=== PATIENT | male | born 1975 | race Caucasian/White ===

== ENCOUNTER 2020-01-20 07:06 | Inpatient (IN) ==
[2020-01-20] MEDS ORDERED: SODIUM CHLORIDE 0.9% 1000ML 1,000 ML IV ONE (07:40)
[2020-01-20] MEDS ORDERED: PIPERACILLIN/TAZOBACTAM 4.5 GM/120 ML BAG IV ONE (07:43)
[2020-01-20] MEDS ORDERED: PIPERACILL/TAZOBAC CONSULT ACTIVE PRN ×2 (07:43→15:13)
--- NOTE | 2020-01-20 07:58 | XRay Report ---
XR chest 1V portable HISTORY: trouble swallowing, fevers COMPARISON: None. FINDINGS: No pneumothorax. No pleural effusions. The heart is normal in size. There is a left suprahi lar irregular airspace opacity measuring 7.3 x 4.6 cm. The right lung is clear. No evidence for pulmo nary edema. No rib fractures. IMPRESSION: A 7.3 x 4.6 cm left suprahilar irregular airspace opacity. This could represent a pneumonia. However, a pulmonary mass could also have a similar appearance. Contrast-enhanced chest CT recommended for fu rther evaluation. ACT 112: Negative or not required by law. Electronically signed by: Luis Carlos Cordoba M.D. 01/20/2020 7:57 AM
[2020-01-20] MEDS ORDERED: DIAZEPAM 5 MG/ML INJ 10ML VIAL IV STA (08:10)
[2020-01-20 08:16] LABS: Basophils # (auto) 0.02 K/uL (0-0.2); Basophils % (auto) 0.1 %; Eosinophils % (auto) 1.7 %; Hematocrit (blood only) 32.2 % (42-52); Hemoglobin 10.2 g/dL (14.0-18.0); Immature Granulocytes # (auto) 0.08 K/uL (0.00-0.02); Immature Granulocytes % (auto) 0.4 %; Lymphocytes # (auto) 2.31 K/uL (1.2-3.4); Lymphocytes % (auto) 12.8 %; Mean Corpuscular Hemoglobin 27.5 pg (25-34); Mean Corpuscular Hgb Conc 31.7 g/dL (32-36); Mean Corpuscular Volume 86.8 fL (80-100); Mean Platelet Volume 8.3 fL (7.4-10.4); Monocytes # (auto) 1.72 K/uL (0.11-0.59); Monocytes % (auto) 9.5 %; Neutrophils # (auto) 13.61 K/uL (1.4-6.5); Neutrophils % (auto) 75.5 %; Platelet Count 879 K/uL (130-400); RDW Coefficient of Variation 14.4 % (11.5-14.5); RDW Standard Deviation 45.9 fL (36.4-46.3); Red Blood Count 3.71 M/uL (4.7-6.1); White Blood Count 18.04 K/uL (4.8-10.8)
[2020-01-20 08:33] LABS: Albumin Level 2.6 gm/dl (3.4-5.0); Calcium 9.4 mg/dl (8.5-10.1); Creatinine Clr Calc Pharmacy 96.2 ml/min; Est GFR (Non-African American) 117.4; Potassium 3.9 mmol/L (3.5-5.1)
[2020-01-20 08:36] LABS: Albumin Globulin Ratio 0.5 (0.9-2); Bilirubin,Total 0.3 mg/dl (0.2-1); Globulin 5.3 gm/dl (2.5-4.0); Total Protein 7.9 gm/dl (6.4-8.2)
[2020-01-20] MEDS ORDERED: ACETAMINOPHEN 1,000 MG/100 ML VIAL IV STA (08:51)
[2020-01-20] MEDS ORDERED: IOVERSOL 100ml IV PRN (08:56)
[2020-01-20 09:09] LABS: Influenza A virus by PCR Neg for Influ A (Neg); Influenza B virus by PCR Neg for Influ B (Neg)
--- NOTE | 2020-01-20 09:31 | CT Scan Report ---
CT soft tissue neck w con CT DOSE: 323.57 mGy.cm CLINICAL HISTORY: trouble swallowing 1 month TECHNIQUE: Helical images were acquired during intravenous administration of 94 cc of Optiray 320. A dose lowering technique was utilized adhering to the principles of ALARA. COMPARISON STUDY: None. FINDINGS: The visualized portions of the lung apices are unremarkable. No thyroid masses are visualized. No salivary gland masses are visualized. There are left supraclavicular lymph nodes are the upper limits of normal in size measuring 9 mm in s hort axis. No necrotic lymph nodes are visualized. There are no fluid collections suspicious for abscess. There is no evidence of airway compromise. No mucosal space masses are visualized. There is an abnormal trabecular pattern of the bone. Clinical correlation in regards to metabolic bon e disease is recommended. Metastatic disease is within differential but is felt to be statistically l ess likely. IMPRESSION: 1. No pathologic neck masses identified 2. Left supraclavicular lymph nodes at the upper limits of normal in size. 3. Abnormal trabecular pattern of the bone. Clinical correlation in regards to metabolic bone disease is recommended ACT 112: Negative or not required by law. Electronically signed by: Neftaly Bond M.D. 01/20/2020 9:30 AM
--- NOTE | 2020-01-20 09:43 | CT Scan Report ---
CT OF THE CHEST WITH IV CONTRAST CLINICAL HISTORY: Evaluate mass on chest radiograph. COMPARISON STUDY: Chest radiograph performed earlier today. TECHNIQUE: Following IV administration of 94 mL of Optiray-320, helical axial images of the chest we re obtained. Sagittal and coronal reconstructions were viewed as well as maximal intensity projectio ns on an independent 3-D workstation. Automated exposure control was utilized for the study. A dose lowering technique was utilized adhering to the principles of ALARA. FINDINGS: Mild esophageal wall thickening is noted. No enlarged axillary, mediastinal or hilar lymph nodes are present. A few prominent upper abdominal lymph nodes are noted, including a left periaorti c lymph node that measures 1 cm in short axis diameter. Size the heart is normal. There is no pericar dial effusion. Mild emphysema is present. Note is made of a thick-walled fluid-filled mass-like abnor mality with cavitation within the left lung. This appears to extend across the major fissure and invo lves the apicoposterior segment of the left upper lobe and the superior segment the left lower lobe. This measures 6.1 x 3.7 cm. The inferior component is cavitary and extends to a 1.6 cm irregular nodu le within the left lower lobe on image 165. Additional groundglass opacity within the left lower lobe and lingula is noted. No underlying bony destruction is present. Central airways are patent. Note is made of diffuse increased sclerosis and heterogeneity of visualized skeletal structures. Visual port ions of the liver are unremarkable. Visualized portions of the adrenal glands are unremarkable. IMPRESSION: 1. 6.1 x 3.7 cm thick-walled fluid-filled mass-like abnormality with cavitation in the left lung whic h extends across the fissure and involves the apicoposterior segment of the left upper lobe and the s uperior segment of the left lower lobe. Adjacent irregular 1.6 cm nodule. These findings may reflect a neoplastic process with necrotic neoplasm. However, an infectious process with lung abscess or less likely empyema could appear similar. Although unlikely, tuberculosis is within the differential. Pul monary consultation is recommended. Discussed with Dr. De Leon at time of dictation. 2. Mild emphysema. 3. Mild esophageal wall thickening. 4. Prominent upper abdominal lymph nodes. 5. Diffuse increased sclerosis and heterogeneity of visualized skeletal structures. This raises the p ossibility of metabolic bone disease. Metastatic disease is within the differential although consider ed less likely. ACT 112: Negative or not required by law. Electronically signed by: Tomás Souza M.D. 01/20/2020 9:41 AM
--- NOTE | 2020-01-20 10:31 | Emergency Department Note ---
Entered by Laney Farris acting as a scribe for Angeles Maynard MD History of Present Illness General Chief complaint: Food Bolus Stated complaint: FEELS LIKE SOMETHING STUCK IN THROAT Source: patient History of Present Illness Onset (ago): month(s) 1 Location: head and mouth (food bolus) Radiation: neck Severity: similar to prior episodes Pain Consistency: + other (persistent) Maximum Pain Intensity: 8 Quality: + other (food bolus) Exacerbated By: + eating Associated symptoms: + chest pain, + fever/chills and + nausea/vomiting; no headaches and no syncope Treatments prior to arrival: none The patient is a 45 year old male presenting to the Emergency Department complaining of a worsening food bolus starting 1 month ago. The patient reports that he feels like something is stuck in his throat. He states that he hasnt been able to eat solid foods for the past month and has lost a significant amount of weight. He explains that he is often nauseous and has been vomiting 1 to 2 times per day. He notes that when he tries to eat his throat hurts. He adds that he has been experiencing cyclic fevers for the past month and that his temperature PHYSICIAN'S ASSISTANT was 100.2F. The patient reports that he sometimes experienced chest pain that radiates up to his neck. He states that he takes no medications regularly and took no medications for his symptoms PHYSICIAN'S ASSISTANT. He explains that he regularly smokes pack of cigarettes per day. He notes that he has no pertinent past medical history. He denies headaches, syncope and drinking alcohol. Home Medications Home Medications Medication Instructions Recorded Confirmed Type diphenhydramine-acetaminophen 2 tab PO HS PRN 01/20/20 01/20/20 History [Tylenol PM Extra Strength] methadone 116 mg PO QAM 01/20/20 01/20/20 History Allergies Allergy/AdvReac Type Severity Reaction Status Date / Time No Known Allergies Allergy Verified 01/20/20 07:33 Past Med/Surg History Medical History Heroin abuse No pertinent past medical history Surgical History No pertinent past surgical history Family History Other Cancer Social History Preferred Language: Togolese Communication Ability: Effective Bereavement Program Coordinator Required: No Beliefs That Will Affect Care: None Current Living Situation: Family and Other Current Living Situation Comment: Lives w/ mother. Feels Safe at Home: Yes Smoking Status: Current every day smoker Tobacco Type: cigarettes ; Cigarettes Per Day: 1 pack/day ; Hx Alcohol Use: No Hx Substance Use: Yes (Not present w/ substance abuse.) substance use type: un known Review of Systems See HPI for pertinent positives & negatives. and A total of 10 systems reviewed and were otherwise negative Physical Exam Vital Signs Vital Signs - 24 hr 01/20/20 07:10 01/20/20 08:10 01/20/20 08:30 Temperature 37.9 C H Temperature Source Oral Pulse Rate 91 H 82 Pulse Rate [Apical] 84 Pulse Rate from SpO2 Sensor 82 Pulse Rhythm [Apical] Regular Respiratory Rate 18 21 20 Respiratory Effort / Characteristics Non-Labored Respiratory Depth Normal Normal Blood Pressure 116/70 94/60 L Blood Pressure [Left Arm] 103/75 Blood Pressure Mean 85 65 Blood Pressure Mean [Left Arm] 84 Blood Pressure Position [Left Arm] Sitting Pulse Oximetry 97 92 93 Oxygen Delivery Method Room Air Room Air Sepsis Recent Fever Within 48 Hours Yes Sepsis New/Unexplained Change in Mental Status No Sepsis Action Taken by Nursing No Action Required 01/20/20 09:07 01/20/20 09:30 01/20/20 10:00 Temperature Temperature Source Pulse Rate 81 68 66 Pulse Rate [Apical] Pulse Rate from SpO2 Sensor 82 68 65 Pulse Rhythm [Apical] Respiratory Rate 19 19 21 Respiratory Effort / Characteristics Respiratory Depth Blood Pressure 101/65 91/59 L 88/54 L Blood Pressure [Left Arm] Blood Pressure Mean 70 62 56 Blood Pressure Mean [Left Arm] Blood Pressure Position [Left Arm] Pulse Oximetry 94 95 95 Oxygen Delivery Method Sepsis Recent Fever Within 48 Hours Sepsis New/Unexplained Change in Mental Status Sepsis Action Taken by Nursing 01/20/20 10:30 Temperature Temperature Source Pulse Rate 63 Pulse Rate [Apical] Pulse Rate from SpO2 Sensor 63 Pulse Rhythm [Apical] Respiratory Rate 16 Respiratory Effort / Characteristics Respiratory Depth Blood Pressure 81/51 L Blood Pressure [Left Arm] Blood Pressure Mean 54 Blood Pressure Mean [Left Arm] Blood Pressure Position [Left Arm] Pulse Oximetry 95 Oxygen Delivery Method Sepsis Recent Fever Within 48 Hours Sepsis New/Unexplained Change in Mental Status Sepsis Action Taken by Nursing Vital signs reviewed. General: Cachectic-appearing 45 year old male, in no significant distress. HEENT: Dry mucous membranes. No scleral icterus, PERRLA, neck supple. Atraumatic. Cardiovascular: Regular rate and rhythm, no extra sounds. Pulmonary: Coarse right sided breath sounds. Normal work of breathing. Abdomen: Abdomen is thin and non-tender. Soft, nondistended, positive bowel sounds. Musculoskeletal: Atraumatic, no peripheral edema. Neurologic: Patient awake alert and oriented x 3 Skin: Warm, dry, no rash Course Course 0720: The patient was evaluated in room B10, and a complete history and physical examination were performed. 0931: I reevaluated the patient at this time. 1031: I discussed the patient's case with Dr. Rosalia KELLY hospitalist. She will evaluate the patient for further management. 1036: EMR reviewed. Patient had negative TB test done at [facility] this past week. Administered Medications Potassium Chloride/Sodium Chloride (Normal Saline W/20 Meq Kcl) 20 meq in 1,000 mls @ 80 mls/hr IV .[id number] [facility] Stop: 02/19/20 15:29 Last Admin: 01/21/20 04:10 Dose: 80 mls/hr Documented by: [id number] Infusion: 01/21/20 04:10 Dose: 80 mls/hr Documented by: [id number] Admin: 01/20/20 16:23 Dose: 80 mls/hr Documented by: [id number] Piperacillin Sod/Tazobactam (Sod 3.375 gm/ Dextrose) 115 mls @ 28.75 mls/hr IV Q8H [facility]; Protocol Stop: 01/27/20 15:59 Last Admin: 01/21/20 16:21 Dose: 28.8 mls/hr Documented by: [id number] Infusion: 01/21/20 13:07 Dose: 0 mls/hr Documented by: [id number] Admin: 01/21/20 07:39 Dose: 28.8 mls/hr Documented by: [id number] Infusion: 01/21/20 03:59 Dose: 0 mls/hr Documented by: [id number] Admin: 01/20/20 23:59 Dose: 28.8 mls/hr Documented by: [id number] Infusion: 01/20/20 20:00 Dose: 0 mls/hr Documented by: [id number] Admin: 01/20/20 16:00 Dose: 28.8 mls/hr Documented by: [id number] Lorazepam (Ativan) 1 mg in 2 mls @ 2 mls/min IV QID [facility] Stop: 02/19/20 15:59 Last Admin: 01/21/20 14:13 Dose: 2 mls/min Documented by: [id number] Admin: 01/21/20 07:40 Dose: 2 mls/min Documented by: [id number] Admin: 01/20/20 20:02 Dose: 2 mls/min Documented by: [id number] Admin: 01/20/20 16:00 Dose: 2 mls/min Documented by: [id number] Ioversol (Optiray 320 100ml) 94 ml IV ONCE PRN PRN Reason: Interaction Checking Stop: 01/25/20 12:33 Last Admin: 01/21/20 12:34 Dose: 94 ml Documented by: [id number] Methadone HCl (Methadone Hcl) 116 mg PO QAM [facility] Stop: 02/04/20 08:59 Last Admin: 01/21/20 09:40 Dose: 116 mg Documented by: [id number] Non-Formulary Medication (Patient's Own Controlled Med) 1 ea PO QAM [facility] Stop: 02/04/20 08:59 Last Admin: 01/21/20 09:40 Dose: 116 mg Documented by: [id number] Pantoprazole Sodium (Protonix) 40 mg PO BID [facility] Stop: 02/19/20 20:59 Last Admin: 01/21/20 09:39 Dose: 40 mg Documented by: [id number] Admin: 01/20/20 23:59 Dose: 40 mg Documented by: [id number] Discontinued Medications Chlorpromazine HCl (Thorazine) 25 mg PO NOW ONE Stop: 01/20/20 13:42 Last Admin: 01/20/20 14:02 Dose: 25 mg Documented by: [id number] Chlorpromazine HCl (Thorazine) Confirm Administered Dose 25 mg .ROUTE .STK-MED ONE Stop: 01/20/20 14:01 Last Admin: 01/20/20 14:02 Dose: Not Given Documented by: [id number] Chlorpromazine HCl (Thorazine) 25 mg PO QID [facility] Stop: 02/19/20 16:59 Last Admin: 01/21/20 14:11 Dose: 25 mg Documented by: [id number] Admin: 01/21/20 09:39 Dose: 25 mg Documented by: [id number] Admin: 01/20/20 20:01 Dose: 25 mg Documented by: [id number] Admin: 01/20/20 17:04 Dose: 25 mg Documented by: [id number] Diazepam (Valium) 10 mg IV NOW STA Stop: 01/20/20 08:11 Last Admin: 01/20/20 08:19 Dose: 10 mg Documented by: [id number] Sodium Chloride (Nss 1000ml) 1,000 mls @ 999 mls/hr IV .Q1H1M ONE Stop: 01/20/20 08:40 Last Infusion: 01/20/20 09:15 Dose: 0 mls/hr Documented by: [id number] Admin: 01/20/20 08:14 Dose: 999 mls/hr Documented by: [id number] Piperacillin Sod/Tazobactam Sod (Zosyn) 4.5 gm in 120 mls @ 240 mls/hr IV NOW ONE Stop: 01/20/20 08:12 Last Infusion: 01/20/20 08:44 Dose: 0 mls/hr Documented by: [id number] Admin: 01/20/20 08:14 Dose: 240 mls/hr Documented by: [id number] Acetaminophen (Ofirmev) 1,000 mg in 100 mls @ 400 mls/hr IV NOW STA Stop: 01/20/20 09:05 Last Infusion: 01/20/20 09:22 Dose: 0 mls/hr Documented by: [id number] Admin: 01/20/20 09:07 Dose: 400 mls/hr Documented by: [id number] Tuberculin PPD 5 tu/ Syringe 0.1 mls @ 0.033 mls/min ID ONE ONE Stop: 01/20/20 15:33 Last Admin: 01/20/20 16:23 Dose: 0.033 mls/min Documented by: [id number] Ioversol (Optiray 320 100ml) 94 ml IV ONCE PRN PRN Reason: Interaction Checking Stop: 01/24/20 08:55 Last Admin: 01/20/20 08:56 Dose: 94 ml Documented by: [id number] Medical Decision Making Differential Diagnosis Differential Diagnosis includes but is not limited to cancer, HIV, TB, dehydration, stroke, anemia, hypoglycemia, hyponatremia, hypernatremia, urinary tract infection, pneumonia, bronchitis, sepsis, gastroenteritis, additional abdominal pathology, metabolic abnormalities and infections. Medical Records Attestation: I reviewed the patient's medical records. Home Medications Current Medication List: was personally reviewed by me Laboratory Data Attestation: I reviewed the patient's lab results. Result diagrams: 01/21/20 06:08 01/21/20 06:08 Lab Results 01/20/20 01/20/20 01/20/20 Range/Units 08:04 08:04 08:04 WBC 18.04 H (4.8-10.8) K/uL RBC 3.71 L (4.7-6.1) M/uL Hgb 10.2 L (14.0-18.0) g/dL Hct 32.2 L (42-52) % MCV 86.8 (80-100) fL MCH 27.5 (25-34) pg MCHC 31.7 L (32-36) g/dL RDW Std Deviation 45.9 (36.4-46.3) fL RDW Coeff of Renzo 14.4 (11.5-14.5) % Plt Count 879 H (130-400) K/uL MPV 8.3 (7.4-10.4) fL Immature Gran % (Auto) 0.4 % Neut % (Auto) 75.5 % Lymph % (Auto) 12.8 % [place] % (Auto) 9.5 % Eos % (Auto) 1.7 % Baso % (Auto) 0.1 % Immature Gran # (Auto) 0.08 H (0.00-0.02) K/uL Neut # (Auto) 13.61 H (1.4-6.5) K/uL Lymph # (Auto) 2.31 (1.2-3.4) K/uL [place] # (Auto) 1.72 H (0.11-0.59) K/uL Eos # (Auto) 0.30 (0-0.5) K/uL Baso # (Auto) 0.02 (0-0.2) K/uL PT (9.0-12.0) Seconds INR (0.9-1.1) APTT (21.0-31.0) Seconds PTT Ratio Sodium 134 L (136-145) mmol/L Potassium 3.9 (3.5-5.1) mmol/L Chloride 98 (98-107) mmol/L Carbon Dioxide 28 (21-32) mmol/L Anion Gap 7.0 (3-11) BUN 8 (7-18) mg/dl Creatinine 0.63 (0.6-1.4) mg/dl Est Cr Clr Drug Dosing 96.2 ml/min Est GFR ( Amer) 136.0 Est GFR (Non-Af Amer) 117.4 BUN/Creatinine Ratio 13.0 (10-20) Glucose 93 (70-99) mg/dl Lactate 1.1 (0.4-2.0) mmol/L Calcium 9.4 (8.5-10.1) mg/dl Total Bilirubin 0.3 (0.2-1) mg/dl AST 20 (15-37) U/L ALT 33 (12-78) U/L Alkaline Phosphatase 116 (45-117) U/L Total Protein 7.9 (6.4-8.2) gm/dl Albumin 2.6 L (3.4-5.0) gm/dl Globulin 5.3 H (2.5-4.0) gm/dl Albumin/Globulin Ratio 0.5 L (0.9-2) Influenza Type A (PCR) (Neg) Influenza Type B (PCR) (Neg) 01/20/20 01/20/20 Range/Units 08:04 08:11 WBC (4.8-10.8) K/uL RBC (4.7-6.1) M/uL Hgb (14.0-18.0) g/dL Hct (42-52) % MCV (80-100) fL MCH (25-34) pg MCHC (32-36) g/dL RDW Std Deviation (36.4-46.3) fL RDW Coeff of Renzo (11.5-14.5) % Plt Count (130-400) K/uL MPV (7.4-10.4) fL Immature Gran % (Auto) % Neut % (Auto) % Lymph % (Auto) % [place] % (Auto) % Eos % (Auto) % Baso % (Auto) % Immature Gran # (Auto) (0.00-0.02) K/uL Neut # (Auto) (1.4-6.5) K/uL Lymph # (Auto) (1.2-3.4) K/uL [place] # (Auto) (0.11-0.59) K/uL Eos # (Auto) (0-0.5) K/uL Baso # (Auto) (0-0.2) K/uL PT 13.0 H (9.0-12.0) Seconds INR 1.3 H (0.9-1.1) APTT 34.8 H (21.0-31.0) Seconds PTT Ratio 1.3 Sodium (136-145) mmol/L Potassium (3.5-5.1) mmol/L Chloride (98-107) mmol/L Carbon Dioxide (21-32) mmol/L Anion Gap (3-11) BUN (7-18) mg/dl Creatinine (0.6-1.4) mg/dl Est Cr Clr Drug Dosing ml/min Est GFR ( Amer) Est GFR (Non-Af Amer) BUN/Creatinine Ratio (10-20) Glucose (70-99) mg/dl Lactate (0.4-2.0) mmol/L Calcium (8.5-10.1) mg/dl Total Bilirubin (0.2-1) mg/dl AST (15-37) U/L ALT (12-78) U/L Alkaline Phosphatase (45-117) U/L Total Protein (6.4-8.2) gm/dl Albumin (3.4-5.0) gm/dl Globulin (2.5-4.0) gm/dl Albumin/Globulin Ratio (0.9-2) Influenza Type A (PCR) Neg for Influ A (Neg) Influenza Type B (PCR) Neg for Influ B (Neg) Imaging Data Radiologist's Impression: Radiology results as stated below per my review and the radiologist's interpretation: CT soft tissue neck w con CT DOSE: 323.57 mGy.cm CLINICAL HISTORY: trouble swallowing 1 month TECHNIQUE: Helical images were acquired during intravenous administration of 94 cc of Optiray 320. A dose lowering technique was utilized adhering to the principles of ALARA. COMPARISON STUDY: None. FINDINGS: The visualized portions of the lung apices are unremarkable. No thyroid masses are visualized. No salivary gland masses are visualized. There are left supraclavicular lymph nodes are the upper limits of normal in size measuring 9 mm in short axis. No necrotic lymph nodes are visualized. There are no fluid collections suspicious for abscess. There is no evidence of airway compromise. No mucosal space masses are visualized. There is an abnormal trabecular pattern of the bone. Clinical correlation in regards to metabolic bone disease is recommended. Metastatic disease is within differential but is felt to be statistically less likely. IMPRESSION: 1. No pathologic neck masses identified 2. Left supraclavicular lymph nodes at the upper limits of normal in size. 3. Abnormal trabecular pattern of the bone. Clinical correlation in regards to metabolic bone disease is recommended ACT 112: Negative or not required by law. Electronically signed by: Neftaly Bond M.D. 01/20/2020 9:[address] OF THE CHEST WITH IV CONTRAST CLINICAL HISTORY: Evaluate mass on chest radiograph. COMPARISON STUDY: Chest radiograph performed earlier today. TECHNIQUE: Following IV administration of 94 mL of Optiray-320, helical axial images of the chest were obtained. Sagittal and coronal reconstructions were viewed as well as maximal intensity projections on an independent 3-D work station. Automated exposure control was utilized for the study. A dose lowering technique was utilized adhering to the principles of ALARA. FINDINGS: Mild esophageal wall thickening is noted. No enlarged axillary, mediastinal or hilar lymph nodes are present. A few prominent upper abdominal lymph nodes are noted, including a left periaortic lymph node that measures 1 cm in short axis diameter. Size the heart is normal. There is no pericardial effusion. Mild emphysema is present. Note is made of a thick-walled fluid-filled mass-like abnormality with cavitation within the left lung. This appears to extend across the major fissure and involves the apicoposterior segment of the left upper lobe and the superior segment the left lower lobe. This measures 6.1 x 3.7 cm. The inferior component is cavitary and extends to a 1.6 cm irregular nodule within the left lower lobe on image 165. Additional groundglass opacity within the left lower lobe and lingula is noted. No underlying bony destruction is present. Central airways are patent. Note is made of diffuse increased sclerosis and heterogeneity of visualized skeletal structures. Visual portions of the liver are unremarkable. Visualized portions of the adrenal glands are unremarkable. IMPRESSION: 1. 6.1 x 3.7 cm thick-walled fluid-filled mass-like abnormality with cavitation in the left lung which extends across the fissure and involves the apicoposterior segment of the left upper lobe and the superior segment of the left lower lobe. Adjacent irregular 1.6 cm nodule. These findings may reflect a neoplastic process with necrotic neoplasm. However, an infectious process with lung abscess or less likely empyema could appear similar. Although unlikely, tuberculosis is within the differential. Pulmonary consultation is recommended. Discussed with Dr. De Leon at time of dictation. 2. Mild emphysema. 3. Mild esophageal wall thickening. 4. Prominent upper abdominal lymph nodes. 5. Diffuse increased sclerosis and heterogeneity of visualized skeletal structures. This raises the possibility of metabolic bone disease. Metastatic disease is within the differential although considered less likely. ACT 112: Negative or not required by law. Electronically signed by: Tomás Souza M.D. 01/20/2020 9:41 AM XR chest 1V portable HISTORY: trouble swallowing, fevers COMPARISON: None. FINDINGS: No pneumothorax. No pleural effusions. The heart is normal in size. There is a left suprahilar irregular airspace opacity measuring 7.3 x 4.6 cm. The right lung is clear. No evidence for pulmonary edema. No rib fractures. IMPRESSION: A 7.3 x 4.6 cm left suprahilar irregular airspace opacity. This could represent a pneumonia. However, a pulmonary mass could also have a similar appearance. Contrast-enhanced chest CT recommended for further evaluation. ACT 112: Negative or not required by law. Electronically signed by: Luis Carlos Cordoba M.D. 01/20/2020 7:57 AM ECG Data Attestation: I personally reviewed and interpreted this ECG as follows: Indication: + other (food bolus) Rate (beats per minute): 76 Rhythm: + sinus rhythm ECG Intervals/blocks: + Normal QT ECG [place]: + Normal ECG ST segments: no ST depression and no ST elevation ECG Findings: + PACs and + LVH Blood Pressure Blood Pressure Findings: Low blood pressure Blood Pressure Disposition: further management by hospitalist KASSIDY Narrative Cardiac Monitoring: An order was placed for continuous cardiac monitoring. The monitor shows a rate of 63 with sinus rhythm. This patient was evaluated and appeared to be in no significant distress. IV access was obtained and laboratory work was drawn. The patient was placed on the cardiac exercise specialist. IV hydration was initiated. Chest x-ray was performed and reveals a 7.3 x 4.6 cm left-sided suprahilar mass. Follow-up CT imaging was performed due to the questionable etiology of the consolidation. Given the patient's recent weight loss and difficulty swallowing, there is obvious concern for malignancy. CT imaging finds a 6.1 x 3.7 cm thick-walled fluid-filled mass with cavitation of the left lung. The patient states he follows with the methadone clinic and had a negative TB test within the last 2 weeks. Patient did receive IV Zosyn given the elevated WBC, blood cultures are pending. Case was discussed with the hospitalist service who will evaluate the patient for further management. Patient is aware of the plan and agrees. Impression & Plan Pulmonary mass, Pneumonia, Fever, Weight loss, Dysphagia Discharge Plan Visit Data *Final* Discharge Date/Time: 01/20/20 14:51 Chief Complaint: Food Bolus Stated Complaint: FEELS LIKE SOMETHING STUCK IN THROAT ED Provider: Angeles Maynard ED Midlevel Provider: Jose Raul De Leon Discharge Problem: Pulmonary mass, Pneumonia, Fever, Weight loss, Dysphagia Patient Disposition: Admitted As Inpatient Discharge Instructions Interventions: ED Discharge Assessment Last Done: 01/20/20 14:51 Discharge Problem: Pneumonia Qualifiers: Pneumonia type: due to unspecified organism Laterality: left Lung location: upper lobe of lung Qualified Code(s): J18.9 - Pneumonia, unspecified organism Fever Qualifiers: Fever type: unspecified Qualified Code(s): R50.9 - Fever, unspecified Dysphagia Qualifiers: Dysphagia type: unspecified Qualified Code(s): R13.10 - Dysphagia, unspecified The scribe's documentation has been prepared under my direction and personally reviewed by me in its entirety. I confirm that the note above accurately reflects all work, treatment, procedures, and medical decision making performed by me.
--- NOTE | 2020-01-20 11:25 | History & Physical Report ---
Date of Service January 20, 2020 Assessment & Plan (1) Pulmonary mass: Admit to [facility] on telemetry. Vital signs every 4 hours. CBC and CMP daily and monitor electrolytes and replenish as needed. Procalcitonin pending. Patient was started on Zosyn in the ER continue Zosyn for possible pneumonia. Patient is placed on airborne isolation until we rule out TB. QuantiFERON test pending. Will do sputum cultures x3. Blood cultures pending. Consult pulmonary for biopsy of the lung mass. N.p.o. after midnight for possible procedure and lung biopsy. DVT prophylaxis SCDs and teds. Patient is a full code. Present on Admission?: Yes (2) Pneumonia: As discussed above. Follow-up with blood cultures. Discontinue Zosyn if pneumonia is less likely based on procalcitonin result and blood cultures. HIV test is pending to r/o possible HIV infection since pt has significant risk factors. Present on Admission?: Yes (3) Weight loss: As discussed above. Started antinausea medication Phenergan 25 mg Q6h prn. Patient has low albumin 2.6. With consult nutrition nutritional assessment. Present on Admission?: Yes (4) Dysphagia: Not clear origin of dysphagia. Could be related to hiccups and irritation of the phrenic nerve by the mass in patient lungs. Will consult GI and pulmonary. Pt possibly needs EGD since there is mild thickening of the esophageal wall seen on the CT chest. Started Thorazine 25 mg PO QID for hiccups. Present on Admission?: Yes (5) Intractable hiccups: As discussed above, started on Thorazine. Observe closely. Present on Admission?: Yes History of Present Illness Chief Complaint: Nausea, vomiting, dysphagia, lung mass Primary Care Provider: JOANIE Nuñez The patient is a 45 years old male with past medical history of snoring heroine for 6 months and then joining [facility] for the past 6 months. Patient reports not ever using IV heroin. Patient is bisexual. He reports smoking 10 cigarettes/day for past 20 years. Patient states that he had PPD test done in the methadone clinic as well as syphilis test which were both negative.HIV test was not done.Patient presented now to the emergency room with a complaint of nausea and vomiting and not being able to swallow solid food for 1 month. Patient is now has low grade fever with temperature of 37.9(100.22F) Patient reports losing 10 pounds.Patient is otherwise mobile and lives with his mother.Patient denies recent travel. He denies chills, chest pain, shortness of breath, abdominal pain, frequency, urgency.Labs are reviewed which shows:WBC is 18.04, RBCs 3.71, hemoglobin 10.2, hematocrit 32.2, platelets 879,Neutrophils 13.61,Sodium 134, potassium 3.9, chloride 98,Carbon dioxide 28, anion gap 7, BUN 8, creatinine 0.63,GFR 117.4, lactate 1.1,calcium 9.4, total bili 0.3,AST 20, ALT 33, alkaline phosphatase 116, total protein 7.9, albumin 2.6, globulin 5.3,Influenza A and B- both negative.Chest x-ray of the necksoft shows no pathological neck masses identified, left supraclavicular lymph node- 9 mm at the upper limits of normal size. Normal trabecular pattern of the bone. Clinical correlation in regards of metabolic disease is recommended. Chest x- rays CT scan of thorax shows 1.6 x 3.7 cm thick-walled fluid-filled mass like abnormality with cavitation in the left lungs which extends across the fissure and involves the apical posterior segment of the left upper lobe and the superior segment of the left lower lobe. Adjacent irregular 1.6 cm nodule. These findings may reflect a neoplastic process with necrotic neoplasm. However an infectious process with lung abscess or less likely empyema could appear similar. Although unlikely tuberculosis is within the differential.There was also seen mild emphysema. Mild esophageal wall thickening. Prominent upper abdominal lymph nodes. Diffuse increase sclerosis and heterogeneity of visualized skeletal structure. This raises the possibility of metabolic bone disease. Metastatic disease is within the differential although considered less likely.Due to all of these concerns and patient not being able to swallow for 1 month and having nausea and vomiting,weight loss, lung mass,and intractable hiccups will admit pt to [facility] on tele for further evaluation and treatment. Allergies Allergy/AdvReac Type Severity Reaction Status Date / Time No Known Allergies Allergy Verified 01/20/20 07:33 Home Medications Home Medications Medication Instructions Recorded Confirmed Type diphenhydramine-acetaminophen 2 tab PO HS PRN 01/20/20 01/20/20 History [Tylenol PM Extra Strength] methadone 119 mg PO QAM 01/20/20 01/20/20 History Past Med/Surg History Medical History No pertinent past medical history Surgical History No pertinent past surgical history Family History Other Cancer Social History Feels Safe at Home: Yes Smoking Status: Current every day smoker Review of Systems Review of Systems: All systems reviewed & are unremarkable except as noted in HPI & below Physical Exam Constitutional: WD/WN, vitals as above well developed, + ill appearing, + cachectic and cooperative Eyes: PERRL, conjunctivae normal, anicteric sclerae ENMT: external ear and nose normal, oropharynx normal Neck: trachea midline, no thyromegaly Respiratory: normal respiratory effort, normal percussion and + tactile fremitus Auscultation: + wheezes Cardiovascular: RRR, no murmur, no edema Gastrointestinal (Abdomen): normal bowel sounds, soft, nontender, no hepatosplenomegaly Musculoskeletal: no cyanosis or clubbing, extremities motor strength 5/5 Skin: no rashes, warm and dry Neurologic: patellar DTR's 2+ bilat, sensation intact Lymphatic: no cervical or axillary lymphadenopathy Results & Data Vital Signs (Past 12 Hours) Vital Signs Temp Pulse Pulse Resp BP BP Pulse Ox 01/20/20 10:30 63 16 81/51 L 95 01/20/20 10:00 66 21 88/54 L 95 01/20/20 09:30 68 19 91/59 L 95 01/20/20 09:07 81 19 101/65 94 01/20/20 08:30 82 20 94/60 L 93 01/20/20 08:10 84 21 103/75 92 01/20/20 07:10 37.9 C H 91 H 18 116/70 97 Code Status & VTE Plan Code Status full code VTE Prophylaxis Plan VTE Prophylaxis will be ordered: Yes PG Care Time/CCT Total # of Minutes Spent Total Time Spent with Patient: Total time spent is greater than 50% in coordination of care (as documented) at patient's floor/unit and/or counseling patient: Coding Level of Care Code 28946 Initial Inpt Care Lvl 3 Diagnoses Pulmonary mass R91.8 Pneumonia J18.9 Laterality: left Lung location: upper lobe of lung Pneumonia type: due to unspecified organism Weight loss R63.4 Dysphagia R13.10 Dysphagia type: unspecified Intractable hiccups R06.6 (1) Pneumonia Laterality: left Lung location: upper lobe of lung Pneumonia type: due to unspecified organism Qualified Code(s): J18.9 - Pneumonia, unspecified organism (2) Dysphagia Dysphagia type: unspecified Qualified Code(s): R13.10 - Dysphagia, unspecified
[2020-01-20] MEDS ORDERED: CHLORPROMAZINE HCL 25 MG TABLET PO ONE (13:41)
[2020-01-20] MEDS ORDERED: CHLORPROMAZINE HCL 25 MG TABLET ONE (14:00)
[2020-01-20] MEDS ORDERED: PROMETHAZINE HCL 25 MG in SODIUM CHLORIDE 0.9% 50 ML IV PRN (15:13)
[2020-01-20] MEDS ORDERED: ALUMINUM/MAGNESIUM SUSP 30 ML UDC PO PRN (15:13)
[2020-01-20] MEDS ORDERED: POLYETHYLENE (MIRALAX) 17 GM PACK PO PRN (15:13)
[2020-01-20] MEDS ORDERED: MAGNESIUM HYDROXIDE SUSP 30 ML UDC PO PRN (15:13)
[2020-01-20] MEDS ORDERED: NON-FORMULARY MEDICATION (Diphenhydramine-Acetaminophen [Tylenol Pm Extra Strength] 2 TAB) PO PRN (15:13)
[2020-01-20] MEDS ORDERED: TUBERCULIN SKIN TEST 5 TU in SYRINGE 0 ML ID ONE (15:30)
[2020-01-20 15:47] LABS: INR 1.3 (0.9-1.1); Partial Thromboplastin Ratio 1.3; Partial Thromboplastin Time 34.8 Seconds (21.0-31.0)
[2020-01-20] MEDS: PIPERACILLIN/TAZOBACTAM 3.375 GM in DEXTROSE 5% 100 ML IV SCH ×2 (16:00→23:59)
[2020-01-20] MEDS: LORazepam 1 MG/2 ML VIAL IV SCH ×2 (16:00→20:02)
[2020-01-20 16:03] LABS: Reticulocyte % 1.1 % (0.5-2.0); Reticulocytes # 0.04 10^6/uL (0.02-0.10)
--- NOTE | 2020-01-20 16:04 | Gastrointestinal Consultation ---
Date of Consultation January 20, 2020 Assessment & Plan (1) Dysphagia: (2) Weight loss: (3) Fever: (4) Intractable hiccups: (5) Pulmonary mass: Pt is a 45 y/o male w symptoms of difficulty and painful swallowing, poor appetite, weight loss for over a month. Hiccups in last 4 days. On eval chest imaging showed 6 x3 cm fluid filled L lung mass w cavitation - Keep NPO. Will arrange for UGI swallow study (esophagram) - Protonix 40mg daily - Thorazine prn hiccups - F/U TB quant gold and HIV tests - Pulmonary consulted - Deferring endoscopic evaluation at this time until workup for pulmonary mass is completed Supervising Physician Co-Signing Physician Notes I performed a history and physical examination of the patient today, including specifically on physical exam - soft abdomen. I have discussed the patient's management with the advanced practitioner. Please refer to the nurse practitioner's note for the documented findings and plan of care. 45 years old male patient with dysphagia/odynophagia, found with large cavitary lung lesion on CT scan. Also has distal esophageal wall thickening. Currently being evaluated for TB and HIV. Recommend: Defer EGD till pulmonary work up is completed and TB is ruled out. Meanwhile, obtain esophagogram. PO PPI. If HIV test is positive then treat empirically with Fluconazole. History of Present Illness Reason for Consultation: Dysphagia Requesting Physician: Dr. [place] Attending Physician: Dr. Dwayne Tejeda History of Present Illness Pt is a 45 y/o male, who presented to ED w c/o nausea, vomiting, and difficulty swallowing foods x over a month. He has associated weight loss of 15 lbs in last 1 month. He has hiccups for last 4 days. Whenever he tried swallowing foods or liquids, he will have pain and start coughing food up. He is also reporting low grade fever at home. + cough, night sweats but denies any hemoptysis. Labs notable for elevated WBC 18K, H/H 10/32, Plt 879. PT/INR 13/1.3. Electrolytes and renal/liver functions normal. albumin low 2.6. Influenza PCR negative. Chest imaging via CXR, Chest CT showed a 6.1 x 3.7 cm thick-walled fluid-filled mass-like abnormality with cavitation in the left lung which extends across the fissure and involves the apicoposterior segment of the left upper lobe and the superior segment of the left lower lobe. Adjacent irregular 1.6 cm nodule. Differentials include neoplastic process w necrotic neoplasm, lung abscess, less likely empyema, TB. Pulmonary consulted. He also has mild esophageal wall thickening w prominent upper abd lymph nodes, diffuse sclerosis and heterogeneity of skeletal structures ? metabolic bone disease. He has Hx of heroin use currently in [facility]one clinic. Smokes 10 cigarettes/day. Denies ETOH abuse. He is bisexual. Denies tattoos or body piercing. Denies known exposure to TB. HIV and TB eval started. Allergies Allergy/AdvReac Type Severity Reaction Status Date / Time No Known Allergies Allergy Verified 01/20/20 07:33 Home Medications Home Medications Medication Instructions Recorded Confirmed Type diphenhydramine-acetaminophen 2 tab PO HS PRN 01/20/20 01/20/20 History [Tylenol PM Extra Strength] methadone 116 mg PO QAM 01/20/20 01/20/20 History Patient History Medical History Heroin abuse No pertinent past medical history Surgical History No pertinent past surgical history Family History Other Cancer Social History Preferred Language: Portuguese Communication Ability: Effective Appointment Specialist Required: No Beliefs That Will Affect Care: None Current Living Situation: Family and Other Current Living Situation Comment: Lives w/ mother. Feels Safe at Home: Yes Smoking Status: Current every day smoker Tobacco Type: cigarettes ; Cigarettes Per Day: 1 pack/day ; Hx Alcohol Use: No Hx Substance Use: Yes (Not present w/ substance abuse.) substance use type: unknown Review of Systems Review of Systems: All systems reviewed & are unremarkable except as noted in HPI & below Physical Exam Constitutional: + ill appearing, + thin, well groomed, cooperative and comfortable Eyes: PERRL, conjunctivae normal, anicteric sclerae ENMT: external ear and nose normal, oropharynx normal Respiratory: normal respiratory effort, lungs clear to auscultation Cardiovascular: RRR, no murmur, no edema Gastrointestinal (Abdomen): normal bowel sounds, soft, nontender, no hepatosplenomegaly Skin: no rashes, warm and dry no jaundice Psychiatric: A+Ox3, euthymic affect Lymphatic: no lymphedema Results & Data ([facility]) Vital Signs (Past 12 Hours) Vital Signs Temp Pulse Pulse Resp BP BP Pulse Ox 01/20/20 14:51 75 17 94/60 L 96 01/20/20 14:00 36.7 C 61 30 H 98/56 L 95 01/20/20 13:38 68 67 17 102/67 102/67 98 01/20/20 12:00 55 L 15 89/55 L 95 01/20/20 11:30 59 L 18 90/56 L 96 01/20/20 11:00 58 L 21 84/55 L 95 01/20/20 10:30 63 16 81/51 L 95 01/20/20 10:00 66 21 88/54 L 95 01/20/20 09:30 68 19 91/59 L 95 01/20/20 09:07 81 19 101/65 94 01/20/20 08:30 82 20 94/60 L 93 01/20/20 08:10 84 21 103/75 92 01/20/20 07:10 37.9 C H 91 H 18 116/70 97 (1) Fever Fever type: unspecified Qualified Code(s): R50.9 - Fever, unspecified (2) Dysphagia Dysphagia type: unspecified Qualified Code(s): R13.10 - Dysphagia, unspecified
[2020-01-20 16:18] LABS: Iron 16 mcg/dl (35-175); Total Iron Binding Capacity 152 mcg/dl (250-450)
[2020-01-20] MEDS: NSS + 20MEQ KCL 20 MEQ/1,000 ML BAG IV SCH (16:23)
[2020-01-20 16:39] LABS: Folate (Folic Acid) 7.62 ng/ml (>5.38)
[2020-01-20] MEDS: CHLORPROMAZINE HCL 25 MG TABLET PO SCH ×2 (17:04→20:01)
--- NOTE | 2020-01-20 19:02 | Electrocardiogram Report ---
Test Reason : Blood Pressure : / mmHG Vent. Rate : 076 BPM Atrial Rate : 076 BPM P-R Int : 142 ms QRS Dur : 082 ms QT Int : 408 ms P-R-T Axes : 052 068 036 degrees QTc Int : 459 ms Sinus rhythm with Premature atrial complexes Minimal voltage criteria for LVH, may be normal variant Borderline ECG No previous ECGs available Confirmed by Xander Hill ([id number]) on 01/20/2020 7:02:21 PM Referred By: REFERRED SELF Confirmed By:Omar Hill
[2020-01-20] MEDS: PANTOprazole 40 MG TAB PO SCH (23:59)
[2020-01-21] MEDS: NSS + 20MEQ KCL 20 MEQ/1,000 ML BAG IV SCH ×2 (04:10→17:56)
[2020-01-21 05:59] LABS: Estimated Average Glucose 126 mg/dl
[2020-01-21 06:38] LABS: Hematocrit (blood only) 26.8 % (42-52); Hemoglobin 8.5 g/dL (14.0-18.0); Mean Corpuscular Hemoglobin 27.9 pg (25-34); Mean Corpuscular Hgb Conc 31.7 g/dL (32-36); Mean Corpuscular Volume 87.9 fL (80-100); Mean Platelet Volume 8.4 fL (7.4-10.4); Platelet Count 653 K/uL (130-400); RDW Coefficient of Variation 14.5 % (11.5-14.5); RDW Standard Deviation 46.4 fL (36.4-46.3); Red Blood Count 3.05 M/uL (4.7-6.1)
[2020-01-21 07:01] LABS: Basophils # (auto) 0.02 K/uL (0-0.2); Basophils % (auto) 0.1 %; Eosinophils # (auto) 0.37 K/uL (0-0.5); Eosinophils % (auto) 2.6 %; Immature Granulocytes # (auto) 0.07 K/uL (0.00-0.02); Immature Granulocytes % (auto) 0.5 %; Lymphocytes # (auto) 2.57 K/uL (1.2-3.4); Lymphocytes % (auto) 17.7 %; Monocytes # (auto) 1.54 K/uL (0.11-0.59); Monocytes % (auto) 10.6 %; Neutrophils # (auto) 9.93 K/uL (1.4-6.5); Neutrophils % (auto) 68.5 %
[2020-01-21 07:08] LABS: BUN Creatinine Ratio 9.1 (10-20); Calcium 8.6 mg/dl (8.5-10.1); Creatinine Clr Calc Pharmacy 112.7 ml/min; Est GFR (African American) 143.8; Est GFR (Non-African American) 124.1; Potassium 3.7 mmol/L (3.5-5.1)
[2020-01-21 07:14] LABS: Albumin Globulin Ratio 0.5 (0.9-2); Bilirubin,Total 0.3 mg/dl (0.2-1); Globulin 4.1 gm/dl (2.5-4.0); Total Protein 6.1 gm/dl (6.4-8.2)
[2020-01-21] MEDS: PIPERACILLIN/TAZOBACTAM 3.375 GM in DEXTROSE 5% 100 ML IV SCH ×2 (07:39→16:21)
[2020-01-21] MEDS: LORazepam 1 MG/2 ML VIAL IV SCH ×4 (07:40→20:55)
[2020-01-21] MEDS ORDERED: METHADONE ORAL SOLN 2 MG/ML PO SCH (09:00)
--- NOTE | 2020-01-21 09:34 | Consultation Report ---
DATE OF CONSULTATION: 01/21/2020 MEDICAL ONCOLOGY/HEMATOLOGY CONSULT REASON FOR CONSULTATION: Lung mass. HISTORY OF PRESENT ILLNESS: The patient is a pleasant 45-year-old gentleman with no known medical problems, was admitted to [facility] yesterday on the insistence of his mother. I got a chance when the patient was out of earshot to speak with his mother, Sonia, a little bit of background about the patient. He really has not seen doctors in quite some time. He is actually living in [place], [place] until about a year ago. His mother suspects his health was in decline at that time and had been prompting him on numerous occasions to see a physician, which he failed to do. Hence, over the past week or so developed a profound dysphagia with hiccups, which has been readily out of control. He reports a 20-pound weight loss over the past month or so. His appetite has been marginal. Upon presentation to the Emergency Room, laboratory workup revealed hemoglobin of 10.2 g/dL, albumin of 2.6, increased globulin fraction and elevated white count. Radiographically, CT scan of the chest revealed a 6.1 x 3.7 cm thick walled fluid filledmass with cavitation involving the left lung which extends across the fissure and involves the apical posterior segment of the left upper lobe and superior segment of the left lower lobe. There is an adjacent irregular 1.6 cm nodule seen as well. Prominent upper abdominal lymph nodes are noted. There is mild esophageal wall thickening seen. CT scan of the neck was essentially unrevealing. Abdomen and pelvis has not been done, which some point should be during admission. Gastroenterology is presently on consult. I would add Pulmonary consult list and this gentleman needs to be imaged particularly the abdomen and pelvis moving forward. My suspicions are heading towards a probable neoplastic process. PAST MEDICAL HISTORY: Essentially benign. PAST SURGICAL HISTORY: Negative. CURRENT MEDICATIONS: He is presently on methadone, apparently an opioid addict in recovery; diphenhydramine; acetaminophen; Tylenol PM 2 tablets p.o. at bedtime p.r.n. ALLERGIES: No known drug allergies. FAMILY HISTORY: Positive for cancer. SOCIAL HISTORY: Currently lives with his mother. He is an everyday smoker. Mom states he was probably a pack a day smoker for at least 20 years. He also had an opioid addiction, presently on methadone in recovery. REVIEW OF SYSTEMS: CONSTITUTIONAL: Most notably for cachexia, anorexia and weight loss. SKIN: No rashes or lesions. No history of dermatoses. HEENT: Negative for headaches, lightheadedness or dizziness. No acute visual or hearing deficits. No sinus symptoms, sore throat. Positive for dysphagia and persistent hiccups. LYMPH: No history of lymphoproliferative disease. CARDIAC: No history of coronary artery disease. No current angina or palpitations. RESPIRATORY: Positive for intermittent cough. He reports no hemoptysis. No acute shortness of breath or dyspnea on exertion. GASTROINTESTINAL: Negative for abdominal pain, nausea, vomiting, diarrhea or constipation, hematochezia or melena of stools. GENITOURINARY: No hematuria, dysuria, urinary incontinence. PSYCHIATRIC: Negative for anxiety, depression or psychoses. ENDOCRINE: Negative for diabetes or thyroid disease. MUSCULOSKELETAL: No arthralgias or myalgias. No focal muscle weakness. NEUROLOGIC: Negative for seizure, stroke or migraine headache. HEMATOLOGIC: Positive for anemia, positive for leukocytosis. PHYSICAL EXAMINATION: GENERAL: He is a cachectic appearing 45-year-old gentleman, appears much older than his stated age, in no acute distress. VITAL SIGNS: Temperature is 36.5, pulse 98, respiratory rate 22, blood pressure 98/58. SKIN: Warm, dry, noncyanotic without petechia, rash or ecchymosis. Turgor is poor. HEENT: Head is atraumatic, normocephalic. Eyes: PERRLA, EOMI. Sclerae nonicteric. No conjunctival discharge. Nares are patent without rhinorrhea or discharge. Throat clear. Tongue midline. NECK: Supple. No JVD or thyromegaly. LYMPH: No cervical or supraclavicular palpable nodes. HEART: Regular rate and rhythm. No clicks, rubs, murmurs or gallops. LUNGS: Diminished breath sounds in the right side predominantly. Auscultation not optimal utilizing one of the hospital's temporary stethoscopes, thus the examination is not reliable. ABDOMEN: Soft, nontender, nondistended, without palpable hepatosplenomegaly. EXTREMITIES: No clubbing, cyanosis or edema. Pulses and strength are equal in all 4 quadrants. NEUROLOGICAL: He is awake, alert and oriented x3. Cranial nerves are intact. LABORATORY DATA: WBC count 14,500, hemoglobin 8.5, platelet count 653,000. Sodium 136, potassium 3.7, chloride 103, carbon dioxide 26, creatinine 0.55, BUN 5. His iron is 16, TIBC 152, albumin 2.0, globulin 4.1. IMPRESSION: 1. 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 2. Cachexia/weight loss. 3. Dysphagia and hiccups. 4. Iron deficiency anemia. 5. Reactive thrombocytosis. PLAN: I visited with the patient at bedside with his mother accompanying him today. Clearly this gentleman has been in decline over the past several weeks. Mother prompting him to go to the doctor and finally convinced him on the day of admission. He was worked up and admitted to [facility] Preliminary radiographic evidence points to emerging neoplasia. This gentleman needs a complete review of systems as well as scanning of the abdomen and pelvis to further characterize the extent of disease. Agree with Gastroenterology consult. We will also get Pulmonary involved in this as well to investigate this cavitary lesion. Esophagus needs to be looked into. Potentially this gentleman may have 2 separate primaries. I advised his mother from a radiographic and clinical perspective, the patient's presentation is consistent with an emerging cancer and to prepare for the diagnosis. However, also advised the diagnosis is not confirmed until tissue is obtained. In regards to his hematologic issue, clearly he is iron deficient, which is reflected in a low serum iron and reactive thrombocytosis. Perhaps some time during hospitalization, he could be given IV iron which would go long way in improving this gentleman's energy levels and reduction in platelet count. I will reengage once diagnosis is confirmed to discuss plan of therapeutics. In regard to the hiccups, if Thorazine is ineffective, may want to try baclofen 10 mg p.o. b.i.d. We will continue to follow along with you. Thank you for allowing me to participate in this gentleman's care. DAX
[2020-01-21] MEDS: CHLORPROMAZINE HCL 25 MG TABLET PO SCH ×2 (09:39→14:11)
[2020-01-21] MEDS: PANTOprazole 40 MG TAB PO SCH ×2 (09:39→20:55)
[2020-01-21] MEDS: PATIENT'S OWN CONTROLLED MED PO SCH (09:40)
[2020-01-21] MEDS: METHADONE ORAL SOLN 2 MG/ML PO SCH (09:40)
[2020-01-21] MEDS ORDERED: BACLOFEN 10 MG TAB PO PRN (10:02)
--- NOTE | 2020-01-21 11:04 | Gastroenterology Progress Note ---
Date of Service January 21, 2020 Assessment & Plan (1) Dysphagia: (2) Weight loss: (3) Fever: (4) Intractable hiccups: (5) Pulmonary mass: Pt is a 45 y/o male w symptoms of difficulty and painful swallowing, poor appetite, weight loss for over a month. Hiccups in last 4 days. On eval chest imaging showed 6 x3 cm fluid filled L lung mass w cavitation HIV negative; TB quant gold pending - OK for CL diet - Obtain esophagram; test pending TB quant gold results - Protonix 40mg daily - Will try Baclofen 10mg BID instead of Thoraxine for hiccups - Obtain CT abd/pelvis to r/o intraabd malignancy - Pulmonary & Oncology consulted - Deferring endoscopic evaluation at this time until workup for pulmonary mass is completed and pending TB quant gold test. Attg add: I interviewed and examined pt, reviewed chart and labs. Pt with abd CT showing cecal wall thick. Cont to have hiccups. Add Reglan, in addition to Baclofen. Await results of pulm w/u. Pls call qith questions over weekend. Admission and Anticipated Discharge Date Admission Date: January 20, 2020 Subjective Pt still w persistent hiccups. Denies abd pain, n/v. Able to tolerate sips of water with medication intake HIV test negative. TB quant gold pending Review of Systems Review of Systems: All systems reviewed & are unremarkable except as noted in HPI & below Physical Exam Constitutional: + ill appearing, + thin, well groomed, cooperative and comfortable Eyes: PERRL, conjunctivae normal, anicteric sclerae ENMT: external ear and nose normal, oropharynx normal Respiratory: normal respiratory effort, lungs clear to auscultation Cardiovascular: RRR, no murmur, no edema Gastrointestinal (Abdomen): normal bowel sounds, soft, nontender, no hepatosplenomegaly Skin: no rashes, warm and dry no jaundice Psychiatric: A+Ox3, euthymic affect Lymphatic: no lymphedema Results & Data ([facility]) Vital Signs (Past 12 Hours) Vital Signs Temp Pulse Pulse Resp BP Pulse Ox 01/21/20 07:57 36.5 C 98 H 22 98/58 L 98 01/21/20 07:00 72 01/21/20 03:13 37.0 C 101 H 21 94/53 L 93 02/28/20 00:04 37.1 C 125 H 18 104/64 93 01/20/20 23:30 117 H (1) Fever Fever type: unspecified Qualified Code(s): R50.9 - Fever, unspecified (2) Dysphagia Dysphagia type: unspecified Qualified Code(s): R13.10 - Dysphagia, unspecified
--- NOTE | 2020-01-21 11:41 | Pulmonary Consultation ---
Date of Consultation January 21, 2020 Assessment & Plan (1) Pulmonary mass: Is a 45-year-old male with a history of IV drug abuse who presents with a 6 x 4 cm fluid-filled mass with cavitation left lung. HIV fourth-generation screening is negative Influenza a and B are negative on swab QuantiFERON gold is pending AFB smears on a.m. sputum are pending Obtain echocardiogram Continue IV antibiotics empirically Check a MRSA swab If AFB smears are negative, may need bronchoscopy on Friday (2) Intractable hiccups: Thorazine Follow QTC (460 ms on EKG 01/21/2020 at 12:04 PM) Thank you for including us in the care of this patient. We will continue to follow along with you. Please refer to Dr. Mitchell's addendum for further recommendations. Supervising Physician Co-Signing Physician Notes Patient seen and examined with Marques ruiz PA-C. I agree with assessment and plan aside for any additions/exceptions noted: 45-year-old male with evidence of a prominent 6.1 x 3.7 cm thick-walled cavity in the left upper lobe with heterogeneous fluid and droplets of air. Likely this represents an abscess. Malignancy is difficult to rule out. He did have a CT of his abdomen which demonstrates cecal thickening and possible metastatic disease in the bones. We are ruling out possible tuberculosis infection with a QuantiFERON gold and AFB sputum smears. If these are negative, we can consider bronchoscopy with potential biopsy in the future. Would treat with IV antibiotics at this present time. He may need surgical intervention for the pulmonary abscess. I would avoid drainage at this time due to the concern of creating a bronchopleural fistula. His HIV antigen testing was negative. We will consider her viral load testing and/or PCR testing as HIV may not seroconvert in early phase of the disease. History of Present Illness Attending Physician: Ray Bauer DO History of Present Illness Attending: Dr. Mitchell Is a 45-year-old male with a past medical history of IV drug abuse, methadone use, tobacco abuse. He presents with shortness of breath and intractable hiccups for the last 5 days as well as nausea and vomiting and inability to swallow food for a month. He was found to have pneumonia versus cavitary lesion on the left with CT imaging. The patient does describe fever with a T-max of 102 at home, significant weight loss, and dysphasia. The patient states he had contact with an adult female who he goes to methadone clinic with who recently had pneumonia and reportedly was intubated at [facility] in [place]. The patient's mother is present with him in the room. She provides a significant amount of the history as the patient is somewhat drowsy and lethargic. 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 He has no other outside employment. Patient denies any other significant past medical history. He did have HIV testing here which was negative. Patient currently has QuantiFERON gold and serial a.m. sputum samples pending. Patient denies any other sick contacts or family history significant for TB or other pulmonary disease. He smokes approximately 15 cigarettes a day and has smoked since his teenage years. He denies any significant ethanol abuse. He states that he has not participating IV drug abuse for or several years. He denies use of any other illicit substance. Allergies Allergy/AdvReac Type Severity Reaction Status Date / Time No Known Allergies Allergy Verified 01/20/20 07:33 Home Medications Home Medications Medication Instructions Recorded Confirmed Type diphenhydramine-acetaminophen 2 tab PO HS PRN 01/20/20 01/20/20 History [Tylenol PM Extra Strength] methadone 116 mg PO QAM 01/20/20 01/20/20 History Patient History Medical History Heroin abuse No pertinent past medical history Surgical History No pertinent past surgical history Family History Other Cancer Social History Preferred Language: Wolof Communication Ability: Effective Assistant Football Coach Required: No Beliefs That Will Affect Care: None Current Living Situation: Family and Other Current Living Situation Comment: Lives w/ mother. Feels Safe at Home: Yes Smoking Status: Current every day smoker Tobacco Type: cigarettes ; Cigarettes Per Day: 1 pack/day ; Hx Alcohol Use: No Hx Substance Use: Yes (Not present w/ substance abuse.) substance use type: unknown Review of Systems Review of Systems: All systems reviewed & are unremarkable except as noted in HPI & below Physical Exam Physical Exam: GENERAL : No acute distress. Cachectic appearing EYES: No icterus, gaze conjugate NOSE: No evidence of epistaxis MOUTH: No lesions or candidiasis NECK: Supple LUNGS: Poor inspiratory effort. Decreased breath sounds on the left base. No significant bronchospasm or rhonchi appreciated. HEART: Regular, tachycardic ABDOMEN: Soft, NT, ND, BS Present. No rebound tenderness. EXTREMITIES: No LE edema, pedal pulses intact NEURO: A&OX3. Results & Data ([facility]) Vital Signs (Past 12 Hours) Vital Signs Temp Pulse Pulse Resp BP Pulse Ox 01/21/20 07:57 36.5 C 98 H 22 98/58 L 98 01/21/20 07:00 72 01/21/20 03:13 37.0 C 101 H 21 94/53 L 93 01/21/20 00:04 37.1 C 125 H 18 104/64 93 Laboratory Results 01/21/20 06:08 01/21/20 06:08 Laboratory Tests 01/20/20 01/20/20 01/20/20 08:11 15:49 15:49 Procalcitonin 0.13 HIV 1&2 Ab/P24 Ag 4thGn Neg Influenza Type A (PCR) Neg for Influ A Influenza Type B (PCR) Neg for Influ B Diagnostic Findings CT OF THE CHEST WITH IV CONTRAST 01/20/2020 CLINICAL HISTORY: Evaluate mass on chest radiograph. COMPARISON STUDY: Chest radiograph performed earlier today. TECHNIQUE: Following IV administration of 94 mL of Optiray-320, helical axial images of the chest were obtained. Sagittal and coronal reconstructions were viewed as well as maximal intensity projections on an independent 3-D workstation. Automated exposure control was utilized for the study. A dose lowering technique was utilized adhering to the principles of ALARA. FINDINGS: Mild esophageal wall thickening is noted. No enlarged axillary, mediastinal or hilar lymph nodes are present. A few prominent upper abdominal lymph nodes are noted, including a left periaortic lymph node that measures 1 cm in short axis diameter. Size the heart is normal. There is no pericardial effusion. Mild emphysema is present. Note is made of a thick-walled fluid-filled mass-like abnormality with cavitation within the left lung. This appears to extend across the major fissure and involves the apicoposterior segment of the left upper lobe and the superior segment the left lower lobe. This measures 6.1 x 3.7 cm. The inferior component is cavitary and extends to a 1.6 cm irregular nodule within the left lower lobe on image 165. Additional groundglass opacity within the left lower lobe and lingula is noted. No underlying bony destruction is present. Central airways are patent. Note is made of diffuse increased sclerosis and heterogeneity of visualized skeletal structures. Visual portions of the liver are unremarkable. Visualized portions of the adrenal glands are unremarkable. IMPRESSION: 1. 6.1 x 3.7 cm thick-walled fluid-filled mass-like abnormality with cavitation in the left lung which extends across the fissure and involves the apicoposterior segment of the left upper lobe and the superior segment of the left lower lobe. Adjacent irregular 1.6 cm nodule. These findings may reflect a neoplastic process with necrotic neoplasm. However, an infectious process with lung abscess or less likely empyema could appear similar. Although unlikely, tuberculosis is within the differential. Pulmonary consultation is recommended. Discussed with Dr. De Leon at time of dictation. 2. Mild emphysema. 3. Mild esophageal wall thickening. 4. Prominent upper abdominal lymph nodes. 5. Diffuse increased sclerosis and heterogeneity of visualized skeletal structures. This raises the possibility of metabolic bone disease. Metastatic disease is within the differential although considered less likely. ACT 112: Negative or not required by law. Electronically signed by: Tomás Souza M.D. 01/20/2020 9:41 AM PG Care Time/CCT Total # of Minutes Spent Total Time Spent with Patient: Total time spent is greater than 50% in coordination of care (as documented) at patient's floor/unit and/or counseling patient: 45 minutes Coding Level of Care Code 86591 Inpt Consult Level 4 Diagnoses Pulmonary mass R91.8 Intractable hiccups R06.6
[2020-01-21] MEDS ORDERED: IOVERSOL 100ml IV PRN (12:34)
--- NOTE | 2020-01-21 12:49 | CT Scan Report ---
CT abd pelvis oral and IV con CLINICAL HISTORY: Weight loss. Pulmonary mass. COMPARISON STUDY: None TECHNIQUE: The patient was scanned following administration of dilute oral contrast, and in a dynamic helical fashion during intravenous administration of 94 cc of Optiray 320 A dose lowering technique was utilized adhering to the principles of ALARA. CT DOSE: 293.35 mGy.cm FINDINGS: Lower chest: There are mild left basilar atelectatic changes. Liver: The contrast-enhanced liver is normal in size, contour, and attenuation. There is no intrahepa tic biliary ductal dilatation. The hepatic veins and portal veins are patent. Gallbladder: Unremarkable. Spleen: Normal in size and attenuation. Pancreas: Unremarkable. Adrenal glands: Unremarkable. Kidneys: There is symmetric renal cortical enhancement. The kidneys are normal in size without hydron ephrosis. Bowel: There are no transition zones to indicate bowel obstruction. There is no evidence of acute div erticulitis. There is pronounced abnormal wall thickening involving the cecum. This could be inflamma tory or neoplastic. GI consultation is recommended in follow-up. Terminal ileum appears unremarkable. The appendix is not visualized. Peritoneum: There is no intraperitoneal free air or abdominal ascites. Vasculature: The abdominal aorta is normal in course and caliber. Adenopathy: None. Pelvic viscera: The bladder, and pelvic viscera are unremarkable. Skeletal structures: The bones have a diffusely abnormal trabecular pattern. Clinical correlation in regards to metabolic bone disease is recommended. IMPRESSION: 1. Marked bowel wall thickening involving the cecal region. This could be inflammatory or neoplastic. GI consultation is recommended in follow-up. 2. No evidence of hepatic metastasis. 3. Diffusely abnormal trabecular pattern of the bones. Clinical correlation in regards to metabolic b one disease is recommended. Metastatic disease is within differential but is felt to be statistically less likely ACT 112: Negative or not required by law. Electronically signed by: Neftaly Bond M.D. 01/21/2020 12:48 PM
--- NOTE | 2020-01-21 17:53 | Hospitalist Progress Note ---
Date of Service January 21, 2020 Assessment & Plan (1) Pulmonary mass: 45yo M PMH opioid user in remission, presenting with recent significant weight loss, dysphagia, found to have large cavitary leg mass in Left upper lobe. Pulmonary cavitary mass: -CBC and CMP daily and monitor electrolytes and replenish as needed. -Procalcitonin negative, HIV negative -Pulm and oncology consulted, appreciate recs: ----Concern for cancer vs infectious process ----May need bronch if afb smears neg ----Avoiding drainage for now -Will treat with zosyn for ?pna -Airborne isolation until QuantiFERON test results -AFB sputum cultures x3. -Blood cultures pending, no growth x 24hrs. Dysphagia and hiccups -Pt reportedly has been having health issues for past year, including dysphagia. -Progressively worsening in last month with 20 lb weight loss -GI consult appreciated -Cont protonix -CEA neg, B12, folate normal -Deferring scope eval until pulm lesion identified -CT abdo pelvis with cecal thickening ?metastatic dz in bones -Nutritional consult appreciated -Thorazine not helping, will try baclofen and reglan ?Pneumonia: As discussed above. Follow-up with blood cultures. Will discontinue Zosyn if pneumonia is less likely based on procalcitonin result and blood cultures. HIV test is negative Code: Full DVTP: SCDs and teds. Dispo: med tele, isolation FEN/GI: Clear liquid diet, NS with 20 K@80cc/hr (2) Pneumonia: (3) Intractable hiccups: (4) Dysphagia: Admission and Anticipated Discharge Date Admission Date: January 20, 2020 Supervising Physician Co-Signing Physician Notes I saw the patient the resident physician confirmed crump portions of the history a nd physical examination. Upon examination, the patient is lying in bed; his mother is bedside. He continues to have hiccups. Blood pressure 95/55, pulse 120. He is afebrile. He is cachectic/chronically ill appearing. He is alert and oriented. Heart is regular but somewhat tachycardic Lungs are clear Abdomen is soft and nontender Extremities without edema Blood cell count 14.5, hemoglobin 8.5 BUN 5, creatinine 0.55 Albumin 2.0 Flu is negative; HIV is negative Tuberculosis testing is pending Probable pulmonary neoplasm Cachexia with weight loss Dysphagia Anemia, iron deficiency Thrombocytosis, likely reactive Clear liquid diet Exclude tuberculosis Add Protonix 40 mg daily Trial of baclofen for the hiccups Pulmonology, oncology, gastroenterology consults reviewed. Subjective Patient reports fatigue this morning. Notes he is tired from hiccups. Finds it difficult to sleep. Generally uncomfortable. Mother at bedside. Review of Systems Review of Systems: All systems reviewed & are unremarkable except as noted in HPI & below Constitutional: + body aches, + malaise, + weakness and + problem reported ( appetite presetn but unable to swallow) Ear, Nose, Mouth, Throat: + dysphagia Cardiovascular: + chest pain (pleuritic); no palpitations and no calf pain Gastrointestinal: + belching (hiccups), + dysphagia, + change in bowel habits and + constipation Neurologic: no headache(s) Physical Exam Physical Exam: Constitutional: WD/WN, vitals as above well developed, + ill appearing, + cachectic and cooperative Eyes: PERRL, conjunctivae normal, anicteric sclerae ENMT: external ear and nose normal, oropharynx normal Neck: trachea midline, no thyromegaly Respiratory: normal respiratory effort, normal percussion and Auscultation: + scattered wheezes Cardiovascular: RRR, no murmur, no edema Gastrointestinal (Abdomen): normal bowel sounds, soft, nontender, no hepato splenomegaly Musculoskeletal: no cyanosis or clubbing, extremities motor strength 5/5 Skin: no rashes, warm and dry Results & Data ([facility]) Vital Signs (Past 12 Hours) Vital Signs Temp Pulse Pulse Resp BP BP Pulse Ox 01/21/20 15:51 98.6 F 120 H 18 95/55 L 91 01/21/20 11:48 97.9 F 108 H 20 94/41 L 92 01/21/20 07:57 97.7 F 98 H 22 98/58 L 98 01/21/20 07:00 72 Laboratory Results 01/21/20 01/21/20 01/20/20 Range/Units 06:08 06:08 15:49 WBC 14.50 H (4.8-10.8) K/uL RBC 3.05 L (4.7-6.1) M/uL Hgb 8.5 L (14.0-18.0) g/dL Hct 26.8 L (42-52) % MCV 87.9 (80-100) fL MCH 27.9 (25-34) pg MCHC 31.7 L (32-36) g/dL RDW Std Deviation 46.4 H (36.4-46.3) fL RDW Coeff of Renzo 14.5 (11.5-14.5) % Plt Count 653 H (130-400) K/uL MPV 8.4 (7.4-10.4) fL Immature Gran % (Auto) 0.5 % Neut % (Auto) 68.5 % Lymph % (Auto) 17.7 % Coos % (Auto) 10.6 % Eos % (Auto) 2.6 % Baso % (Auto) 0.1 % Immature Gran # (Auto) 0.07 H (0.00-0.02) K/uL Neut # (Auto) 9.93 H (1.4-6.5) K/uL Lymph # (Auto) 2.57 (1.2-3.4) K/uL Coos # (Auto) 1.54 H (0.11-0.59) K/uL Eos # (Auto) 0.37 (0-0.5) K/uL Baso # (Auto) 0.02 (0-0.2) K/uL Peripher Smr Path Cons PT (9.0-12.0) Seconds INR (0.9-1.1) APTT (21.0-31.0) Seconds PTT Ratio Sodium 136 (136-145) mmol/L Potassium 3.7 (3.5-5.1) mmol/L Chloride 103 (98-107) mmol/L Carbon Dioxide 26 (21-32) mmol/L Anion Gap 7.0 (3-11) BUN 5 L (7-18) mg/dl Creatinine 0.55 L (0.6-1.4) mg/dl Est Cr Clr Drug Dosing 112.7 ml/min Est GFR ( Amer) 143.8 Est GFR (Non-Af Amer) 124.1 BUN/Creatinine Ratio 9.1 L (10-20) Glucose 73 (70-99) mg/dl Estimat Average Glucose mg/dl Hemoglobin A1c (4.5-5.6) % Calcium 8.6 (8.5-10.1) mg/dl Iron (35-175) mcg/dl TIBC (250-450) mcg/dl Total Bilirubin 0.3 (0.2-1) mg/dl AST 11 L (15-37) U/L ALT 19 (12-78) U/L Alkaline Phosphatase 90 (45-117) U/L Total Protein 6.1 L D (6.4-8.2) gm/dl Albumin 2.0 L (3.4-5.0) gm/dl Globulin 4.1 H (2.5-4.0) gm/dl Albumin/Globulin Ratio 0.5 L (0.9-2) Triglycerides 141 (0-150) mg/dl Cholesterol 107 (0-200) mg/dl LDL Cholesterol, Calc 64 mg/dl VLDL Cholesterol, Calc 28 mg/dl HDL Cholesterol 15 mg/dl Cholesterol/HDL Ratio 7 Carcinoembryonic Ag (0-2.5) ng/ml Vitamin B12 (211-911) pg/ml Folate (>5.38) ng/ml Procalcitonin 0.13 (0-0.5) ng/ml HIV 1&2 Ab/P24 Ag 4thGn (Neg) 01/20/20 01/20/20 01/20/20 Range/Units 15:49 15:49 15:49 WBC (4.8-10.8) K/uL RBC (4.7-6.1) M/uL Hgb (14.0-18.0) g/dL Hct (42-52) % MCV (80-100) fL MCH (25-34) pg MCHC (32-36) g/dL RDW Std Deviation (36.4-46.3) fL RDW Coeff of Renzo (11.5-14.5) % Plt Count (130-400) K/uL MPV (7.4-10.4) fL Immature Gran % (Auto) % Neut % (Auto) % Lymph % (Auto) % Coos % (Auto) % Eos % (Auto) % Baso % (Auto) % Immature Gran # (Auto) (0.00-0.02) K/uL Neut # (Auto) (1.4-6.5) K/uL Lymph # (Auto) (1.2-3.4) K/uL Coos # (Auto) (0.11-0.59) K/uL Eos # (Auto) (0-0.5) K/uL Baso # (Auto) (0-0.2) K/uL Peripher Smr Path Cons PT (9.0-12.0) Seconds INR (0.9-1.1) APTT (21.0-31.0) Seconds PTT Ratio Sodium (136-145) mmol/L Potassium (3.5-5.1) mmol/L Chloride (98-107) mmol/L Carbon Dioxide (21-32) mmol/L Anion Gap (3-11) BUN (7-18) mg/dl Creatinine (0.6-1.4) mg/dl Est Cr Clr Drug Dosing ml/min Est GFR ( Amer) Est GFR (Non-Af Amer) BUN/Creatinine Ratio (10-20) Glucose (70-99) mg/dl Estimat Average Glucose mg/dl Hemoglobin A1c (4.5-5.6) % Calcium (8.5-10.1) mg/dl Iron (35-175) mcg/dl TIBC (250-450) mcg/dl Total Bilirubin (0.2-1) mg/dl AST (15-37) U/L ALT (12-78) U/L Alkaline Phosphatase (45-117) U/L Total Protein (6.4-8.2) gm/dl Albumin (3.4-5.0) gm/dl Globulin (2.5-4.0) gm/dl Albumin/Globulin Ratio (0.9-2) Triglycerides (0-150) mg/dl Cholesterol (0-200) mg/dl LDL Cholesterol, Calc mg/dl VLDL Cholesterol, Calc mg/dl HDL Cholesterol mg/dl Cholesterol/HDL Ratio Carcinoembryonic Ag 1.8 (0-2.5) ng/ml Vitamin B12 340 (211-911) pg/ml Folate 7.62 (>5.38) ng/ml Procalcitonin (0-0.5) ng/ml HIV 1&2 Ab/P24 Ag 4thGn Neg (Neg) 01/20/20 01/20/20 01/20/20 Range/Units 15:49 15:49 15:49 WBC (4.8-10.8) K/uL RBC (4.7-6.1) M/uL Hgb (14.0-18.0) g/dL Hct (42-52) % MCV (80-100) fL MCH (25-34) pg MCHC (32-36) g/dL RDW Std Deviation (36.4-46.3) fL RDW Coeff of Renzo (11.5-14.5) % Plt Count (130-400) K/uL MPV (7.4-10.4) fL Immature Gran % (Auto) % Neut % (Auto) % Lymph % (Auto) % Coos % (Auto) % Eos % (Auto) % Baso % (Auto) % Immature Gran # (Auto) (0.00-0.02) K/uL Neut # (Auto) (1.4-6.5) K/uL Lymph # (Auto) (1.2-3.4) K/uL Coos # (Auto) (0.11-0.59) K/uL Eos # (Auto) (0-0.5) K/uL Baso # (Auto) (0-0.2) K/uL Peripher Smr Path Cons PT (9.0-12.0) Seconds INR (0.9-1.1) APTT (21.0-31.0) Seconds PTT Ratio Sodium (136-145) mmol/L Potassium (3.5-5.1) mmol/L Chloride (98-107) mmol/L Carbon Dioxide (21-32) mmol/L Anion Gap (3-11) BUN (7-18) mg/dl Creatinine (0.6-1.4) mg/dl Est Cr Clr Drug Dosing ml/min Est GFR ( Amer) Est GFR (Non-Af Amer) BUN/Creatinine Ratio (10-20) Glucose (70-99) mg/dl Estimat Average Glucose 126 mg/dl Hemoglobin A1c 6.0 H (4.5-5.6) % Calcium (8.5-10.1) mg/dl Iron 16 L (35-175) mcg/dl TIBC 152 L (250-450) mcg/dl Total Bilirubin (0.2-1) mg/dl AST (15-37) U/L ALT (12-78) U/L Alkaline Phosphatase (45-117) U/L Total Protein (6.4-8.2) gm/dl Albumin (3.4-5.0) gm/dl Globulin (2.5-4.0) gm/dl Albumin/Globulin Ratio (0.9-2) Triglycerides (0-150) mg/dl Cholesterol (0-200) mg/dl LDL Cholesterol, Calc mg/dl VLDL Cholesterol, Calc mg/dl HDL Cholesterol mg/dl Cholesterol/HDL Ratio Carcinoembryonic Ag (0-2.5) ng/ml Vitamin B12 (211-911) pg/ml Folate (>5.38) ng/ml Procalcitonin (0-0.5) ng/ml HIV 1&2 Ab/P24 Ag 4thGn (Neg) 01/20/20 Range/Units 08:04 WBC (4.8-10.8) K/uL RBC (4.7-6.1) M/uL Hgb (14.0-18.0) g/dL Hct (42-52) % MCV (80-100) fL MCH (25-34) pg MCHC (32-36) g/dL RDW Std Deviation (36.4-46.3) fL RDW Coeff of Renzo (11.5-14.5) % Plt Count (130-400) K/uL MPV (7.4-10.4) fL Immature Gran % (Auto) % Neut % (Auto) % Lymph % (Auto) % Coos % (Auto) % Eos % (Auto) % Baso % (Auto) % Immature Gran # (Auto) (0.00-0.02) K/uL Neut # (Auto) (1.4-6.5) K/uL Lymph # (Auto) (1.2-3.4) K/uL Coos # (Auto) (0.11-0.59) K/uL Eos # (Auto) (0-0.5) K/uL Baso # (Auto) (0-0.2) K/uL Peripher Smr Path Cons PT 13.0 H (9.0-12.0) Seconds INR 1.3 H (0.9-1.1) APTT 34.8 H (21.0-31.0) Seconds PTT Ratio 1.3 Sodium (136-145) mmol/L Potassium (3.5-5.1) mmol/L Chloride (98-107) mmol/L Carbon Dioxide (21-32) mmol/L Anion Gap (3-11) BUN (7-18) mg/dl Creatinine (0.6-1.4) mg/dl Est Cr Clr Drug Dosing ml/min Est GFR ( Amer) Est GFR (Non-Af Amer) BUN/Creatinine Ratio (10-20) Glucose (70-99) mg/dl Estimat Average Glucose mg/dl Hemoglobin A1c (4.5-5.6) % Calcium (8.5-10.1) mg/dl Iron (35-175) mcg/dl TIBC (250-450) mcg/dl Total Bilirubin (0.2-1) mg/dl AST (15-37) U/L ALT (12-78) U/L Alkaline Phosphatase (45-117) U/L Total Protein (6.4-8.2) gm/dl Albumin (3.4-5.0) gm/dl Globulin (2.5-4.0) gm/dl Albumin/Globulin Ratio (0.9-2) Triglycerides (0-150) mg/dl Cholesterol (0-200) mg/dl LDL Cholesterol, Calc mg/dl VLDL Cholesterol, Calc mg/dl HDL Cholesterol mg/dl Cholesterol/HDL Ratio Carcinoembryonic Ag (0-2.5) ng/ml Vitamin B12 (211-911) pg/ml Folate (>5.38) ng/ml Procalcitonin (0-0.5) ng/ml HIV 1&2 Ab/P24 Ag 4thGn (Neg) Medications Administered Current Inpatient Medications Acetaminophen (Tylenol) 650 mg PO Q4H PRN PRN Reason: Pain or Fever Stop: 02/19/20 15:12 Acetaminophen (Tylenol) 1,000 mg PO HS PRN; Protocol PRN Reason: Sleep Stop: 02/19/20 20:59 Al Hydrox/Mg Hydrox/Simethicone (Maalox) 15 ml PO Q4H PRN PRN Reason: Dyspepsia Stop: 02/19/20 15:12 Baclofen (Lioresal) 10 mg PO BID [facility] Stop: 02/20/20 20:59 Diphenhydramine HCl (Benadryl Capsule) 50 mg PO HS PRN; Protocol PRN Reason: Sleep Stop: 02/19/20 20:59 Potassium Chloride/Sodium Chloride (Normal Saline W/20 Meq Kcl) 20 meq in 1,000 mls @ 80 mls/hr IV .[id number] [facility] Stop: 02/19/20 15:29 Last Admin: 01/21/20 17:56 Dose: 80 mls/hr Documented by: Promethazine HCl 25 mg/ Sodium (Chloride) 51 mls @ 204 mls/hr IV Q6H PRN PRN Reason: Nausea And Vomiting Stop: 02/19/20 15:12 Piperacillin Sod/Tazobactam (Sod 3.375 gm/ Dextrose) 115 mls @ 28.75 mls/hr IV Q8H [facility]; Protocol Stop: 01/27/20 15:59 Last Admin: 01/21/20 16:21 Dose: 28.8 mls/hr Documented by: Lorazepam (Ativan) 1 mg in 2 mls @ 2 mls/min IV QID [facility] Stop: 02/19/20 15:59 Last Admin: 01/21/20 17:56 Dose: 2 mls/min Documented by: Ioversol (Optiray 320 100ml) 94 ml IV ONCE PRN PRN Reason: Interaction Checking Stop: 01/25/20 12:33 Last Admin: 01/21/20 12:34 Dose: 94 ml Documented by: Magnesium Hydroxide (Milk Of Magnesia) 30 ml PO Q12H PRN PRN Reason: Constipation Stop: 02/19/20 15:12 Methadone HCl (Methadone Hcl) 116 mg PO QAM [facility] Stop: 02/04/20 08:59 Last Admin: 01/21/20 09:40 Dose: 116 mg Documented by: Metoclopramide HCl (Reglan) 5 mg IV TID [facility] Stop: 01/22/20 14:01 Miscellaneous (Ppd Check) 1 ea N/A Q48H [facility] Stop: 01/22/20 15:31 Miscellaneous Information (Consult) 1 ea N/A UD PRN PRN Reason: Consult Stop: 02/19/20 15:12 Non-Formulary Medication (Patient's Own Controlled Med) 1 ea PO QAM [facility] Stop: 02/04/20 08:59 Last Admin: 01/21/20 09:40 Dose: 116 mg Documented by: Pantoprazole Sodium (Protonix) 40 mg PO BID [facility] Stop: 02/19/20 20:59 Last Admin: 01/21/20 09:39 Dose: 40 mg Documented by: Polyethylene Glycol (Miralax Powder Packet) 17 gm PO DAILY [facility] Stop: 02/21/20 08:59 Resident Activity Tracking Resident Involvement: Resident Care Provided Care Provided: Adult Hospital Medicine (1) Dysphagia Dysphagia type: unspecified Qualified Code(s): R13.10 - Dysphagia, unspecified (2) Pneumonia Laterality: left Lung location: upper lobe of lung Pneumonia type: due to unspecified organism Qualified Code(s): J18.9 - Pneumonia, unspecified organism
--- NOTE | 2020-01-21 18:19 | XCELERA ---
[id number] [id number]
--- NOTE | 2020-01-21 18:36 | Electrocardiogram Report ---
Test Reason : Blood Pressure : / mmHG Vent. Rate : 103 BPM Atrial Rate : 103 BPM P-R Int : 144 ms QRS Dur : 080 ms QT Int : 358 ms P-R-T Axes : 073 092 053 degrees QTc Int : 468 ms Sinus tachycardia Rightward axis Borderline ECG When compared with ECG of 20-JAN-2020 07:49, Premature atrial complexes are no longer Present Confirmed by Xander Hill ([id number]) on 01/21/2020 6:36:09 PM Referred By: REFERRED SELF Confirmed By:Omar Hill
[2020-01-21] MEDS: METOCLOPRAMIDE HCL INJ 5 MG/ML 2 ML VIAL IV SCH (20:58)
[2020-01-21] MEDS: BACLOFEN 10 MG TAB PO SCH (20:58)
[2020-01-22] MEDS: PIPERACILLIN/TAZOBACTAM 3.375 GM in DEXTROSE 5% 100 ML IV SCH ×3 (00:58→16:18)
[2020-01-22 05:55] LABS: Quantiferon Mitogen-NIL >10.00 IU/mL; Quantiferon NIL 0.09 IU/mL; Quantiferon TB Gold Plus NEGATIVE (NEGATIVE); Quantiferon TB1-NIL <0.00 IU/mL; Quantiferon TB2-NIL <0.00 IU/mL
[2020-01-22] MEDS: NSS + 20MEQ KCL 20 MEQ/1,000 ML BAG IV SCH ×2 (06:55→17:37)
[2020-01-22 07:12] LABS: Basophils # (auto) 0.02 K/uL (0-0.2); Basophils % (auto) 0.1 %; Eosinophils # (auto) 0.53 K/uL (0-0.5); Eosinophils % (auto) 3.4 %; Hematocrit (blood only) 25.8 % (42-52); Hemoglobin 8.1 g/dL (14.0-18.0); Immature Granulocytes # (auto) 0.08 K/uL (0.00-0.02); Immature Granulocytes % (auto) 0.5 %; Lymphocytes # (auto) 3.17 K/uL (1.2-3.4); Lymphocytes % (auto) 20.5 %; Mean Corpuscular Hemoglobin 27.5 pg (25-34); Mean Corpuscular Hgb Conc 31.4 g/dL (32-36); Mean Corpuscular Volume 87.5 fL (80-100); Mean Platelet Volume 8.5 fL (7.4-10.4); Monocytes # (auto) 1.59 K/uL (0.11-0.59); Monocytes % (auto) 10.3 %; Neutrophils # (auto) 10.07 K/uL (1.4-6.5); Neutrophils % (auto) 65.2 %; Platelet Count 714 K/uL (130-400); RDW Coefficient of Variation 14.5 % (11.5-14.5); RDW Standard Deviation 46.5 fL (36.4-46.3); Red Blood Count 2.95 M/uL (4.7-6.1); White Blood Count 15.46 K/uL (4.8-10.8)
--- NOTE | 2020-01-22 07:22 | Hospitalist Progress Note ---
Date of Service January 22, 2020 Assessment & Plan (1) Pulmonary mass: 45yo M PMH opioid user in remission, presenting with recent significant weight loss, dysphagia, found to have large cavitary leg mass in Left upper lobe. Pulmonary cavitary mass: -CBC and CMP daily and monitor electrolytes and replenish as needed. -Procalcitonin negative, HIV negative, Tb/Quantiferon gold negative -Pulm and oncology consulted, appreciate recs: ----Concern for cancer vs infectious process ----Avoiding drainage for now, rec 4 weeks abx (zosyn to augmentin), repeat CT in 4 weeks ----Will order viral PCR for HIV, ESR -Airborne isolation DCd. -AFB sputum cultures x3, however, no sputum production to date. -Blood cultures pending, no growth x 48hrs. Abnormal echo -Echo with thickening of mitral chordal apparatus, cannot definitively r/o vegetation -Will need to coordinate with ID/cards/GI for possible GI eval for dysphagia followed by DEVONTE. Dysphagia and hiccups -Pt reportedly has been having health issues for past year, including dysphagia. -Progressively worsening in last month with 20 lb weight loss -GI consult appreciated -Cont protonix -CEA neg, B12, folate normal -Hope for scope eval Friday after discussing with GI -CT abdo pelvis with cecal thickening ?metabolic dz in bones -Nutritional consult appreciated -Thorazine not helping, will try baclofen and reglan ?Pneumonia: As discussed above. Follow-up with blood cultures. Cont zosyn x 4 weeks as above. Code: Full DVTP: SCDs and teds. Dispo: med tele FEN/GI: Clear liquid diet, NS with 20 K@80cc/hr (2) Pneumonia: (3) Intractable hiccups: (4) Dysphagia: Admission and Anticipated Discharge Date Admission Date: January 20, 2020 Supervising Physician Co-Signing Physician Notes I saw the patient the resident physician confirmed crump portions of the history and physical examination. Blood pressure 96/58, heart rate 88, temperature 37.2 He is cachectic/chronically ill appearing. He is alert and oriented. Heart is regular Lungs are clear Abdomen is soft and nontender Extremities without edema White blood cell count 15.4, hemoglobin 8.1 Sodium 134, BUN 3, creatinine 0.59 Albumin 1.8 QuantiFERON gold is negative. Echocardiogram comments on thickening of the mitral chordal apparatus; a vegetation cannot be excluded. Ejection fraction 50 to 55%. No wall motion abnormalities. Blood cultures are negative. 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 Subjective Pt feeling subjectively a little better this morning. Notes hiccups are a little better. Was able to sleep last evening. Glad to hear about Tb testing. Anxious to get up and moving. Review of Systems Review of Systems: All systems reviewed & are unremarkable except as noted in HPI & below Constitutional: + malaise, + weakness and + problem reported (appetite present but unable to swallow) Ear, Nose, Mouth, Throat: + dysphagia and + pain with swallowing Respiratory: no cough and no dyspnea Cardiovascular: + chest pain (pleuritic); no palpitations, no edema and no calf pain Gastrointestinal: + belching (hiccups), + dysphagia, + change in bowel habits and + constipation Musculoskeletal: no swelling and no myalgia Neurologic: no tremor(s) and no restless legs Physical Exam Physical Exam: Constitutional: WD/WN, vitals as above well developed, + ill appearing, + cachectic and cooperative Eyes: PERRL, conjunctivae normal, anicteric sclerae, sunken eyes. Gaunt. ENMT: external ear and nose normal, oropharynx normal Neck: trachea midline, no thyromegaly Respiratory: normal respiratory effort, normal percussion and Auscultation: + scattered wheezes Cardiovascular: RRR, no murmur, no edema Gastrointestinal (Abdomen): normal bowel sounds, soft, nontender, no hepatosplenomegaly Musculoskeletal: no cyanosis or clubbing, extremities motor strength 5/5 Skin: no rashes, warm and dry Results & Data ([facility]) Vital Signs (Past 12 Hours) Vital Signs Temp Pulse Pulse Resp BP Pulse Ox 01/22/20 04:00 98.8 F 84 18 97/56 L 94 01/22/20 03:13 102 H 01/21/20 22:00 99.1 F 101 H 18 106/66 93 01/21/20 20:00 98.8 F 91 H 18 99/51 L 95 Laboratory Results 01/22/20 01/22/20 01/22/20 Range/Units Unknown 06:29 06:29 WBC 15.46 H (4.8-10.8) K/uL RBC 2.95 L (4.7-6.1) M/uL Hgb 8.1 L (14.0-18.0) g/dL Hct 25.8 L (42-52) % MCV 87.5 (80-100) fL MCH 27.5 (25-34) pg MCHC 31.4 L (32-36) g/dL RDW Std Deviation 46.5 H (36.4-46.3) fL RDW Coeff of Renzo 14.5 (11.5-14.5) % Plt Count 714 H (130-400) K/uL MPV 8.5 (7.4-10.4) fL Immature Gran % (Auto) 0.5 % Neut % (Auto) 65.2 % Lymph % (Auto) 20.5 % [place] % (Auto) 10.3 % Eos % (Auto) 3.4 % Baso % (Auto) 0.1 % Immature Gran # (Auto) 0.08 H (0.00-0.02) K/uL Neut # (Auto) 10.07 H (1.4-6.5) K/uL Lymph # (Auto) 3.17 (1.2-3.4) K/uL [place] # (Auto) 1.59 H (0.11-0.59) K/uL Eos # (Auto) 0.53 H (0-0.5) K/uL Baso # (Auto) 0.02 (0-0.2) K/uL Sodium 134 L (136-145) mmol/L Potassium 3.9 (3.5-5.1) mmol/L Chloride 100 (98-107) mmol/L Carbon Dioxide 29 (21-32) mmol/L Anion Gap 5.0 (3-11) BUN 3 L (7-18) mg/dl Creatinine 0.59 L (0.6-1.4) mg/dl Est Cr Clr Drug Dosing 99.0 ml/min Est GFR ( Amer) 139.7 Est GFR (Non-Af Amer) 120.6 BUN/Creatinine Ratio 5.9 L (10-20) Glucose 74 (70-99) mg/dl Calcium 8.4 L (8.5-10.1) mg/dl Total Bilirubin 0.4 (0.2-1) mg/dl AST 15 (15-37) U/L ALT 21 (12-78) U/L Alkaline Phosphatase 89 (45-117) U/L Total Protein 6.1 L (6.4-8.2) gm/dl Albumin 1.8 L (3.4-5.0) gm/dl Globulin 4.3 H (2.5-4.0) gm/dl Albumin/Globulin Ratio 0.4 L (0.9-2) Nasal Screen MRSA (PCR) Negative (Negative) TB Test (QFT) Gold Plus (NEGATIVE) TB Test (QFT) Nil IU/mL TB Test Mitogen - Nil IU/mL TB Test Ag - Nil 1 IU/mL TB Test Ag - Nil 2 IU/mL 01/20/20 Range/Units 15:49 WBC (4.8-10.8) K/uL RBC (4.7-6.1) M/uL Hgb (14.0-18.0) g/dL Hct (42-52) % MCV (80-100) fL MCH (25-34) pg MCHC (32-36) g/dL RDW Std Deviation (36.4-46.3) fL RDW Coeff of Renzo (11.5-14.5) % Plt Count (130-400) K/uL MPV (7.4-10.4) fL Immature Gran % (Auto) % Neut % (Auto) % Lymph % (Auto) % [place] % (Auto) % Eos % (Auto) % Baso % (Auto) % Immature Gran # (Auto) (0.00-0.02) K/uL Neut # (Auto) (1.4-6.5) K/uL Lymph # (Auto) (1.2-3.4) K/uL [place] # (Auto) (0.11-0.59) K/uL Eos # (Auto) (0-0.5) K/uL Baso # (Auto) (0-0.2) K/uL Sodium (136-145) mmol/L Potassium (3.5-5.1) mmol/L Chloride (98-107) mmol/L Carbon Dioxide (21-32) mmol/L Anion Gap (3-11) BUN (7-18) mg/dl Creatinine (0.6-1.4) mg/dl Est Cr Clr Drug Dosing ml/min Est GFR ( Amer) Est GFR (Non-Af Amer) BUN/Creatinine Ratio (10-20) Glucose (70-99) mg/dl Calcium (8.5-10.1) mg/dl Total Bilirubin (0.2-1) mg/dl AST (15-37) U/L ALT (12-78) U/L Alkaline Phosphatase (45-117) U/L Total Protein (6.4-8.2) gm/dl Albumin (3.4-5.0) gm/dl Globulin (2.5-4.0) gm/dl Albumin/Globulin Ratio (0.9-2) Nasal Screen MRSA (PCR) (Negative) TB Test (QFT) Gold Plus NEGATIVE (NEGATIVE) TB Test (QFT) Nil 0.09 IU/mL TB Test Mitogen - Nil >10.00 IU/mL TB Test Ag - Nil 1 <0.00 IU/mL TB Test Ag - Nil 2 <0.00 IU/mL Medications Administered Current Inpatient Medications Acetaminophen (Tylenol) 650 mg PO Q4H PRN PRN Reason: Pain or Fever Stop: 02/19/20 15:12 Acetaminophen (Tylenol) 1,000 mg PO HS PRN; Protocol PRN Reason: Sleep Stop: 02/19/20 20:59 Al Hydrox/Mg Hydrox/Simethicone (Maalox) 15 ml PO Q4H PRN PRN Reason: Dyspepsia Stop: 02/19/20 15:12 Baclofen (Lioresal) 10 mg PO BID [facility] Stop: 02/20/20 20:59 Last Admin: 01/22/20 09:30 Dose: 10 mg Documented by: Diphenhydramine HCl (Benadryl Capsule) 50 mg PO HS PRN; Protocol PRN Reason: Sleep Stop: 02/19/20 20:59 Potassium Chloride/Sodium Chloride (Normal Saline W/20 Meq Kcl) 20 meq in 1,000 mls @ 80 mls/hr IV .[id number] [facility] Stop: 02/19/20 15:29 Last Admin: 01/22/20 06:55 Dose: 80 mls/hr Documented by: Promethazine HCl 25 mg/ Sodium (Chloride) 51 mls @ 204 mls/hr IV Q6H PRN PRN Reason: Nausea And Vomiting Stop: 02/19/20 15:12 Piperacillin Sod/Tazobactam (Sod 3.375 gm/ Dextrose) 115 mls @ 28.75 mls/hr IV Q8H [facility]; Protocol Stop: 01/27/20 15:59 Last Infusion: 01/22/20 12:14 Dose: Infused Documented by: Lorazepam (Ativan) 1 mg in 2 mls @ 2 mls/min IV QID [facility] Stop: 02/19/20 15:59 Last Admin: 01/22/20 13:57 Dose: 2 mls/min Documented by: Ioversol (Optiray 320 100ml) 94 ml IV ONCE PRN PRN Reason: Interaction Checking Stop: 01/25/20 12:33 Last Admin: 01/21/20 12:34 Dose: 94 ml Documented by: Magnesium Hydroxide (Milk Of Magnesia) 30 ml PO Q12H PRN PRN Reason: Constipation Stop: 02/19/20 15:12 Methadone HCl (Methadone Hcl) 116 mg PO QAM [facility] Stop: 02/04/20 08:59 Last Admin: 01/22/20 10:03 Dose: 116 mg Documented by: Miscellaneous Information (Consult) 1 ea N/A UD PRN PRN Reason: Consult Stop: 02/19/20 15:12 Non-Formulary Medication (Patient's Own Controlled Med) 1 ea PO QAM [facility] Stop: 02/04/20 08:59 Last Admin: 01/22/20 10:03 Dose: 116 mg Documented by: Pantoprazole Sodium (Protonix) 40 mg PO BID [facility] Stop: 02/19/20 20:59 Last Admin: 01/22/20 09:29 Dose: 40 mg Documented by: Polyethylene Glycol (Miralax Powder Packet) 17 gm PO DAILY [facility] Stop: 02/21/20 08:59 Last Admin: 01/22/20 09:30 Dose: 17 gm Documented by: Resident Activity Tracking Resident Involvement: Resident Care Provided Care Provided: Adult Hospital Medicine (1) Dysphagia Dysphagia type: unspecified Qualified Code(s): R13.10 - Dysphagia, un specified (2) Pneumonia Laterality: left Lung location: upper lobe of lung Pneumonia type: due to unspecified organism Qualified Code(s): J18.9 - Pneumonia, unspecified organism
[2020-01-22 07:57] LABS: Albumin Level 1.8 gm/dl (3.4-5.0); BUN Creatinine Ratio 5.9 (10-20); Calcium 8.4 mg/dl (8.5-10.1); Est GFR (African American) 139.7; Est GFR (Non-African American) 120.6; Potassium 3.9 mmol/L (3.5-5.1)
[2020-01-22 08:00] LABS: Albumin Globulin Ratio 0.4 (0.9-2); Bilirubin,Total 0.4 mg/dl (0.2-1); Globulin 4.3 gm/dl (2.5-4.0); Total Protein 6.1 gm/dl (6.4-8.2)
[2020-01-22] MEDS: PANTOprazole 40 MG TAB PO SCH ×2 (09:29→21:16)
[2020-01-22] MEDS: BACLOFEN 10 MG TAB PO SCH ×2 (09:30→21:16)
[2020-01-22] MEDS: METOCLOPRAMIDE HCL INJ 5 MG/ML 2 ML VIAL IV SCH ×2 (09:30→13:52)
[2020-01-22] MEDS: POLYETHYLENE (MIRALAX) 17 GM PACK PO SCH (09:30)
[2020-01-22] MEDS: LORazepam 1 MG/2 ML VIAL IV SCH ×4 (09:33→21:15)
[2020-01-22] MEDS: METHADONE ORAL SOLN 2 MG/ML PO SCH (10:03)
[2020-01-22] MEDS: PATIENT'S OWN CONTROLLED MED PO SCH (10:03)
--- NOTE | 2020-01-22 11:13 | Progress Note ---
DATE: 01/22/2020 MEDICAL ONCOLOGY PROGRESS NOTE DIAGNOSES: 1. 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 2. Cachexia/weight loss. 3. Dysphagia/hiccups. 4. Iron-deficiency anemia. 5. Reactive thrombocytosis. SUBJECTIVE: Juanjo was seen and examined at bedside. His mother is in the room visiting. Not much progress on establishing a diagnosis. Recently switched him from Thorazine to baclofen for hiccups. Dietary intake is minimal at this point. He denies any overt pain or discomfort. Nursing reports no overnight difficulties. OBJECTIVE: GENERAL: A very pleasant 45-year-old gentleman in no acute distress. VITAL SIGNS: Temperature 36.8, pulse 89, respiratory rate 22, blood pressure 101/68. SKIN: Without rash or lesion. Turgor is fair. HEENT: Oral mucosa is dry. No buccal lesions or ulcerations. HEART: Regular rate and rhythm. LUNGS: Auscultation is suboptimal, appears clear. ABDOMEN: Soft, nontender, nondistended. EXTREMITIES: No clubbing, cyanosis or edema. NEUROLOGICAL: Grossly intact. LABORATORY DATA: WBC count 15,460, hemoglobin 8.1, platelet count 714,000. Sodium 134, potassium 3.9, chloride 100, carbon dioxide 29, creatinine 0.59, BUN 3, albumin 1.8. IMPRESSION: 1. Lung mass, suspected lung cancer. 2. Cachexia/weight loss. 3. Severe hypoalbuminemia. 4. Dysphagia/hiccups. 5. Iron-deficiency anemia. 6. Reactive thrombocytosis. PLAN: Juanjo was seen and examined this morning at bedside. He voices no concerns of discomfort or pain other than continues with a nuisance hiccups. Switched him from Thorazine to baclofen. We need to seriously work on his nutritional status, perhaps even some albumin 25% daily over the next couple of days. Need to investigate the esophagus sooner rather than later, so he can resume a regular diet. I would go ahead and proceed with iron sucrose 300 mg intravenously. We will await confirmation of diagnosis and make formal recommendations at that time. Continue baclofen. Thank you very much for allowing me to participate in his care. I will continue to follow him periodically during his stay and will make arrangements for outpatient followup assuming cancer diagnosis is confirmed.
[2020-01-22] MEDS ORDERED: PPD CHECK ONE (15:30)
[2020-01-22] MEDS: ACETAMINOPHEN 325 MG TAB PO PRN (19:50)
[2020-01-22] MEDS: ALBUMIN 25% 50 ML IV SCH (21:15)
[2020-01-23] MEDS: PIPERACILLIN/TAZOBACTAM 3.375 GM in DEXTROSE 5% 100 ML IV SCH ×4 (00:13→23:53)
[2020-01-23] MEDS: ACETAMINOPHEN 500 MG TAB PO PRN (04:06)
[2020-01-23] MEDS: METOCLOPRAMIDE HCL INJ 5 MG/ML 2 ML VIAL IV PRN ×2 (05:09→12:47)
[2020-01-23 06:23] LABS: Basophils # (auto) 0.02 K/uL (0-0.2); Basophils % (auto) 0.2 %; Eosinophils # (auto) 0.43 K/uL (0-0.5); Eosinophils % (auto) 3.6 %; Hematocrit (blood only) 27.9 % (42-52); Hemoglobin 8.9 g/dL (14.0-18.0); Immature Granulocytes % (auto) 0.8 %; Lymphocytes # (auto) 2.09 K/uL (1.2-3.4); Lymphocytes % (auto) 17.7 %; Mean Corpuscular Hemoglobin 27.8 pg (25-34); Mean Corpuscular Hgb Conc 31.9 g/dL (32-36); Mean Corpuscular Volume 87.2 fL (80-100); Mean Platelet Volume 8.3 fL (7.4-10.4); Monocytes # (auto) 1.14 K/uL (0.11-0.59); Monocytes % (auto) 9.7 %; Neutrophils # (auto) 8.01 K/uL (1.4-6.5); Platelet Count 702 K/uL (130-400); RDW Coefficient of Variation 14.5 % (11.5-14.5); RDW Standard Deviation 46.2 fL (36.4-46.3); White Blood Count 11.79 K/uL (4.8-10.8)
[2020-01-23 06:53] LABS: BUN Creatinine Ratio 6.8 (10-20); Calcium 8.7 mg/dl (8.5-10.1); Creatinine Clr Calc Pharmacy 106.2 ml/min; Est GFR (African American) 143.8; Est GFR (Non-African American) 124.1; Potassium 3.6 mmol/L (3.5-5.1)
[2020-01-23 06:56] LABS: Albumin Globulin Ratio 0.5 (0.9-2); Bilirubin,Total 0.2 mg/dl (0.2-1); Globulin 4.3 gm/dl (2.5-4.0); Total Protein 6.3 gm/dl (6.4-8.2)
[2020-01-23] MEDS ORDERED: IRON SUCROSE 200 MG in 0.9 % SODIUM CHLORIDE 100 ML IV SCH (07:00)
[2020-01-23] MEDS: NSS + 20MEQ KCL 20 MEQ/1,000 ML BAG IV SCH ×2 (07:15→18:35)
--- NOTE | 2020-01-23 07:34 | Hospitalist Progress Note ---
Date of Service January 23, 2020 Assessment & Plan (1) Pulmonary mass: 45yo M PMH opioid user in remission, presenting with recent significant weight loss, dysphagia, found to have large cavitary leg mass in Left upper lobe. Pulmonary cavitary mass: -CBC and CMP daily and monitor electrolytes and replenish as needed. -Procalcitonin negative, HIV negative, Tb/Quantiferon gold negative -Pulm and oncology consulted, appreciate recs: ----Concern for cancer vs infectious process ----Avoiding drainage for now, rec 4 weeks abx (zosyn to augmentin), repeat CT in 4 weeks ----Will order viral PCR for HIV, ESR >90. -Airborne isolation DCd. -AFB sputum cultures x3, however, no sputum production to date. -Blood cultures pending, no growth x 48hrs, no comment updated at 72 hour karla. Abnormal echo -Echo with thickening of mitral chordal apparatus, cannot definitively r/o vegetation -Will need to coordinate with ID/cards/GI for possible GI eval for dysphagia followed by DEVONTE. -Imperative that EGD be performed JULIANNE Dysphagia and hiccups -Pt reportedly has been having health issues for past year, including dysphagia. -Progressively worsening in last month with 20 lb weight loss -GI consult appreciated -Cont protonix -CEA neg, B12, folate normal -Hope for scope eval Friday after discussing with GI on 01/22. Pt NPO from midnight -CT abdo pelvis with cecal thickening ?metabolic dz in bones -Nutritional consult appreciated -Thorazine not helping, will try baclofen and reglan ?Pneumonia: As discussed above. Follow-up with blood cultures. Cont zosyn x 4 weeks as above. Code: Full DVTP: SCDs and teds. Dispo: med tele FEN/GI: Regular, easy to chew, NPO; NS with 20 K@80cc/hr (2) Pneumonia: (3) Intractable hiccups: (4) Dysphagia: Admission and Anticipated Discharge Date Admission Date: January 20, 2020 Supervising Physician Co-Signing Physician Notes I saw the patient the resident physician confirmed crump portions of the history and physical examination. He is feeling about the same; hiccups continue be problematic. Blood pressure 105/73, heart rate 88, respiratory 18, temperature 36.7 C. 94% on room air He is cachectic/chronically ill appearing. He is alert and oriented. Heart is regular. His heart sounds are distant and is difficult to auscultate over his hiccups; I cannot appreciate a murmur. Lungs are clear Abdomen is soft and nontender Extremities without edema White blood cell count improved to 11.79 Hemoglobin is up to 8.9 Platelet count is elevated but down a little at 702. ESR is more elevated at greater than 90 Echocardiogram comments on thickening of the mitral chordal apparatus; a vegetation cannot be excluded. Ejection fraction 50 to 55%. No wall motion abnormalities. Blood cultures are negative. Possible pulmonary neoplasm v infectious process Cachexia with weight loss Mitral valve thickening, cannot exclude endocarditis Hypoalbuminemia Dysphagia Anemia, iron deficiency Thrombocytosis, likely reactive Continue IV albumin and iron He needs an EGD to evaluate for malignancy, and or therapeutic dilatation given his dysphasia Subsequent EGD needs trans-esophageal echocardiogram to exclude vegetation on mitral valve Continue antibiotics -is not clear if this is an infectious process or a malignant process Appreciate recommendations from gastroenterology, oncology, and pulmonology. Subjective Patient very anxious this morning. Continues to have hiccups. Feels "nothing is being done for him" here. Stressed about this diagnosis possibly being cancerous. Asking for something for his nerves. Asking for solid foods again, stating he knows what he can and can't swallow. Review of Systems Review of Systems: All systems reviewed & are unremarkable except as noted in HPI & below Constitutional: + malaise and + weakness Ear, Nose, Mouth, Throat: + dysphagia and + pain with swallowing Cardiovascular: + chest pain (pleuritic); no palpitations, no edema and no calf pain Gastrointestinal: + belching (hiccups), + dysphagia, + change in bowel habits and + constipation Psychiatric: + irritability and + anxiety Physical Exam Physical Exam: Constitutional: WD/WN, vitals as above well developed, + ill appearing, + cachectic and cooperative Eyes: PERRL, conjunctivae normal, anicteric sclerae, sunken eyes. Gaunt. ENMT: external ear and nose normal, oropharynx normal Neck: trachea midline, no thyromegaly Respiratory: normal respiratory effort, normal percussion and CTAB Cardiovascular: RRR, no murmur, no edema Gastrointestinal (Abdomen): normal bowel sounds, soft, nontender, no hepatosplenomegaly Musculoskeletal: no cyanosis or clubbing, extremities motor strength 5/5 Skin: no rashes, warm and dry Results & Data ([facility]) Vital Signs (Past 12 Hours) Vital Signs Temp Pulse Pulse Resp BP Pulse Ox 01/23/20 07:00 68 01/23/20 06:58 97.5 F L 61 19 93/56 L 96 01/23/20 03:27 98.4 F 90 19 96/74 L 97 01/23/20 00:40 72 01/22/20 23:28 97.9 F 79 20 95/61 L 94 01/22/20 22:07 98.1 F Laboratory Results 01/23/20 01/23/20 01/23/20 Range/Units 06:05 06:05 06:05 WBC (4.8-10.8) K/uL RBC (4.7-6.1) M/uL Hgb (14.0-18.0) g/dL Hct (42-52) % MCV (80-100) fL MCH (25-34) pg MCHC (32-36) g/dL RDW Std Deviation (36.4-46.3) fL RDW Coeff of Renzo (11.5-14.5) % Plt Count (130-400) K/uL MPV (7.4-10.4) fL Immature Gran % (Auto) % Neut % (Auto) % Lymph % (Auto) % [place] % (Auto) % Eos % (Auto) % Baso % (Auto) % Immature Gran # (Auto) (0.00-0.02) K/uL Neut # (Auto) (1.4-6.5) K/uL Lymph # (Auto) (1.2-3.4) K/uL [place] # (Auto) (0.11-0.59) K/uL Eos # (Auto) (0-0.5) K/uL Baso # (Auto) (0-0.2) K/uL ESR > 90 H (0-14) mm/hr Sodium 138 (136-145) mmol/L Potassium 3.6 (3.5-5.1) mmol/L Chloride 105 (98-107) mmol/L Carbon Dioxide 28 (21-32) mmol/L Anion Gap 5.0 (3-11) BUN 4 L (7-18) mg/dl Creatinine 0.55 L (0.6-1.4) mg/dl Est Cr Clr Drug Dosing 106.2 ml/min Est GFR ( Amer) 143.8 Est GFR (Non-Af Amer) 124.1 BUN/Creatinine Ratio 6.8 L (10-20) Glucose 97 (70-99) mg/dl Calcium 8.7 (8.5-10.1) mg/dl Total Bilirubin 0.2 (0.2-1) mg/dl AST 14 L (15-37) U/L ALT 20 (12-78) U/L Alkaline Phosphatase 84 (45-117) U/L Total Protein 6.3 L (6.4-8.2) gm/dl Albumin 2.0 L (3.4-5.0) gm/dl Globulin 4.3 H (2.5-4.0) gm/dl Albumin/Globulin Ratio 0.5 L (0.9-2) HIV-1 RNA copies/mL Pending HIV-1 RNA logcopies/mL Pending 01/23/20 Range/Units 06:05 WBC 11.79 H (4.8-10.8) K/uL RBC 3.20 L (4.7-6.1) M/uL Hgb 8.9 L (14.0-18.0) g/dL Hct 27.9 L (42-52) % MCV 87.2 (80-100) fL MCH 27.8 (25-34) pg MCHC 31.9 L (32-36) g/dL RDW Std Deviation 46.2 (36.4-46.3) fL RDW Coeff of Renzo 14.5 (11.5-14.5) % Plt Count 702 H (130-400) K/uL MPV 8.3 (7.4-10.4) fL Immature Gran % (Auto) 0.8 % Neut % (Auto) 68.0 % Lymph % (Auto) 17.7 % [place] % (Auto) 9.7 % Eos % (Auto) 3.6 % Baso % (Auto) 0.2 % Immature Gran # (Auto) 0.10 H (0.00-0.02) K/uL Neut # (Auto) 8.01 H (1.4-6.5) K/uL Lymph # (Auto) 2.09 (1.2-3.4) K/uL [place] # (Auto) 1.14 H (0.11-0.59) K/uL Eos # (Auto) 0.43 (0-0.5) K/uL Baso # (Auto) 0.02 (0-0.2) K/uL ESR (0-14) mm/hr Sodium (136-145) mmol/L Potassium (3.5-5.1) mmol/L Chloride (98-107) mmol/L Carbon Dioxide (21-32) mmol/L Anion Gap (3-11) BUN (7-18) mg/dl Creatinine (0.6-1.4) mg/dl Est Cr Clr Drug Dosing ml/min Est GFR ( Amer) Est GFR (Non-Af Amer) BUN/Creatinine Ratio (10-20) Glucose (70-99) mg/dl Calcium (8.5-10.1) mg/dl Total Bilirubin (0.2-1) mg/dl AST (15-37) U/L ALT (12-78) U/L Alkaline Phosphatase (45-117) U/L Total Protein (6.4-8.2) gm/dl Albumin (3.4-5.0) gm/dl Globulin (2.5-4.0) gm/dl Albumin/Globulin Ratio (0.9-2) HIV-1 RNA copies/mL HIV-1 RNA logcopies/mL Medications Administered Current Inpatient Medications Acetaminophen (Tylenol) 650 mg PO Q4H PRN PRN Reason: Pain or Fever Stop: 02/19/20 15:12 Last Admin: 01/22/20 19:50 Dose: 650 mg Documented by: Acetaminophen (Tylenol) 1,000 mg PO HS PRN; Protocol PRN Reason: Sleep Stop: 02/19/20 20:59 Last Admin: 01/23/20 04:06 Dose: 1,000 mg Documented by: Al Hydrox/Mg Hydrox/Simethicone (Maalox) 15 ml PO Q4H PRN PRN Reason: Dyspepsia Stop: 02/19/20 15:12 Baclofen (Lioresal) 10 mg PO BID [facility] Stop: 02/20/20 20:59 Last Admin: 01/23/20 08:39 Dose: 10 mg Documented by: Diphenhydramine HCl (Benadryl Capsule) 50 mg PO HS PRN; Protocol PRN Reason: Sleep Stop: 02/19/20 20:59 Last Admin: 01/23/20 04:07 Dose: 50 mg Documented by: Potassium Chloride/Sodium Chloride (Normal Saline W/20 Meq Kcl) 20 meq in 1,000 mls @ 80 mls/hr IV .[id number] [facility] Stop: 02/19/20 15:29 Last Admin: 01/23/20 07:15 Dose: 80 mls/hr Documented by: Promethazine HCl 25 mg/ Sodium (Chloride) 51 mls @ 204 mls/hr IV Q6H PRN PRN Reason: Nausea And Vomiting Stop: 02/19/20 15:12 Piperacillin Sod/Tazobactam (Sod 3.375 gm/ Dextrose) 115 mls @ 28.75 mls/hr IV Q8H [facility]; Protocol Stop: 01/27/20 15:59 Last Infusion: 01/23/20 12:16 Dose: Infused Documented by: Albumin Human (Albumin 25%) 50 mls @ 50 mls/hr IV DAILY@1800 [facility] Stop: 01/25/20 17:59 Last Infusion: 01/22/20 22:13 Dose: Infused Documented by: Lorazepam (Ativan) 1 mg in 2 mls @ 2 mls/min IV Q6HWA [facility] Stop: 02/22/20 11:59 Last Admin: 01/23/20 12:46 Dose: Not Given Documented by: Ioversol (Optiray 320 100ml) 94 ml IV ONCE PRN PRN Reason: Interaction Checking Stop: 01/25/20 12:33 Last Admin: 01/21/20 12:34 Dose: 94 ml Documented by: Lorazepam (Ativan) 0.5 mg PO Q2H PRN PRN Reason: Anxiety Stop: 02/22/20 09:46 Last Admin: 01/23/20 12:47 Dose: 0.5 mg Documented by: Magnesium Hydroxide (Milk Of Magnesia) 30 ml PO Q12H PRN PRN Reason: Constipation Stop: 02/19/20 15:12 Methadone HCl (Methadone Hcl) 116 mg PO QAM [facility] Stop: 02/04/20 08:59 Last Admin: 01/23/20 08:38 Dose: 116 mg Documented by: Metoclopramide HCl (Reglan) 10 mg IV Q6H PRN PRN Reason: hiccups Stop: 02/22/20 04:15 Last Admin: 01/23/20 12:47 Dose: 10 mg Documented by: Miscellaneous (Remove Nicoderm Patch) 1 ea N/A DAILY@0859 [facility] Stop: 02/23/20 08:58 Miscellaneous Information (Consult) 1 ea N/A UD PRN PRN Reason: Consult Stop: 02/19/20 15:12 Nicotine (Nicoderm Cq) 14 mg TD QAM [facility] Stop: 02/22/20 09:14 Last Admin: 01/23/20 09:40 Dose: 14 mg Documented by: Non-Formulary Medication (Patient's Own Controlled Med) 1 ea PO QAM [facility] Stop: 02/04/20 08:59 Last Admin: 01/23/20 08:45 Dose: 116 mg Documented by: Pantoprazole Sodium (Protonix) 40 mg PO BID [facility] Stop: 02/19/20 20:59 Last Admin: 01/23/20 08:45 Dose: 40 mg Documented by: Polyethylene Glycol (Miralax Powder Packet) 17 gm PO DAILY [facility] Stop: 02/21/20 08:59 Last Admin: 01/23/20 08:40 Dose: 17 gm Documented by: Resident Activity Tracking Resident Involvement: Resident Care Provided Care Provided: Adult Hospital Medicine (1) Dysphagia Dysphagia type: unspecified Qualified Code(s): R13.10 - Dysphagia, unspecified (2) Pneumonia Laterality: left Lung location: upper lobe of lung Pneumonia type: due to unspecified organism Qualified Code(s): J18.9 - Pneumonia, unspecified organism
[2020-01-23] MEDS: METHADONE ORAL SOLN 2 MG/ML PO SCH (08:38)
[2020-01-23] MEDS: BACLOFEN 10 MG TAB PO SCH ×2 (08:39→20:53)
[2020-01-23] MEDS: POLYETHYLENE (MIRALAX) 17 GM PACK PO SCH (08:40)
[2020-01-23] MEDS: LORazepam 1 MG/2 ML VIAL IV SCH ×4 (08:45→23:53)
[2020-01-23] MEDS: PANTOprazole 40 MG TAB PO SCH ×2 (08:45→20:53)
[2020-01-23] MEDS: PATIENT'S OWN CONTROLLED MED PO SCH (08:45)
[2020-01-23] MEDS: NICOTINE 14 MG/24 HR PATCH TD SCH (09:40)
[2020-01-23] MEDS ORDERED: LORazepam 0.5 MG TAB PO PRN (09:47)
--- NOTE | 2020-01-23 14:41 | Pulmonology Progress Note ---
Date of Service January 23, 2020 Assessment & Plan (1) Pulmonary mass: Is a 45-year-old male with a history of IV drug abuse who presents with a 6 x 4 cm fluid-filled mass with cavitation left lung. HIV screen was negative. HIV viral load and PCR pending. Echocardiogram was performed which demonstrated some thickening of the mitral chordal apparatus and a vegetation cannot be definitively excluded. Blood cultures have been negative thus far. Concern has been raised about a possible malignancy especially in light of his cecal wall thickening, weight loss, smoking history and lung cavity. Oncology has been following him. I would recommend GI follow-up as an outpatient. He will likely need an EGD and a colonoscopy. I do not think that a bronchoscopy is indicated at this point as there may be spillage of the lung abscess into the adjacent lung. There is no significant adenopathy noted on the mediastinum. Would recommend follow-up CT scan in 2 to 3 weeks to follow-up on the large pulmonary abscess. Consideration of DEVONTE given the appearance of the abscess and the mitral chordal apparatus thickening noted on the TTE. Would continue antibiotics to cover for gram-negative and anaerobic organisms. (2) Intractable hiccups: Subjective Patient is alert and awake today. His mom is present in the room. He was hiccuping frequently. He denies any chest pain. He does have some pain on swallowing. No fevers or chills. Minimal cough. Physical Exam Physical Exam: GENERAL : No acute distress. Cachectic appearing EYES: No icterus, gaze conjugate NOSE: No evidence of epistaxis MOUTH: No lesions or candidiasis NECK: Supple LUNGS: Poor inspiratory effort. Decreased breath sounds on the left base. No significant bronchospasm or rhonchi appreciated. HEART: Regular, tachycardic ABDOMEN: Soft, NT, ND, BS Present. No rebound tenderness. EXTREMITIES: No LE edema, pedal pulses intact NEURO: A&OX3. Results & Data ([facility]) Vital Signs (Past 12 Hours) Vital Signs Temp Pulse Pulse Resp BP BP Pulse Ox 01/23/20 12:07 98.1 F 91 H 20 94/60 L 94 01/23/20 07:00 68 01/23/20 06:58 97.5 F L 61 19 93/56 L 96 01/23/20 03:27 98.4 F 90 19 96/74 L 97 PG Care Time/CCT Total # of Minutes Spent Total Time Spent with Patient: Total time spent is greater than 50% in coordination of care (as documented) at patient's floor/unit and/or counseling patient: Coding Level of Care Code 53804 Subseq Hosp Care Lvl 2 Diagnoses Pulmonary mass R91.8 Intractable hiccups R06.6
[2020-01-23] MEDS: ALBUMIN 25% 50 ML IV SCH (18:15)
[2020-01-23] MEDS: ACETAMINOPHEN 325 MG TAB PO PRN (18:33)
[2020-01-24 06:05] LABS: Basophils # (auto) 0.03 K/uL (0-0.2); Basophils % (auto) 0.2 %; Eosinophils # (auto) 0.57 K/uL (0-0.5); Eosinophils % (auto) 4.6 %; Hematocrit (blood only) 28.7 % (42-52); Hemoglobin 8.9 g/dL (14.0-18.0); Immature Granulocytes # (auto) 0.12 K/uL (0.00-0.02); Lymphocytes # (auto) 2.85 K/uL (1.2-3.4); Lymphocytes % (auto) 22.9 %; Mean Corpuscular Hemoglobin 27.4 pg (25-34); Mean Corpuscular Volume 88.3 fL (80-100); Mean Platelet Volume 8.3 fL (7.4-10.4); Monocytes # (auto) 0.95 K/uL (0.11-0.59); Monocytes % (auto) 7.6 %; Neutrophils # (auto) 7.93 K/uL (1.4-6.5); Neutrophils % (auto) 63.7 %; Platelet Count 736 K/uL (130-400); RDW Coefficient of Variation 14.6 % (11.5-14.5); RDW Standard Deviation 47.5 fL (36.4-46.3); Red Blood Count 3.25 M/uL (4.7-6.1); White Blood Count 12.45 K/uL (4.8-10.8)
[2020-01-24] MEDS: LORazepam 1 MG/2 ML VIAL IV SCH ×3 (06:08→18:01)
[2020-01-24 06:37] LABS: BUN Creatinine Ratio 4.5 (10-20); Calcium 8.6 mg/dl (8.5-10.1); Creatinine Clr Calc Pharmacy 93.2 ml/min; Est GFR (African American) 133.4; Est GFR (Non-African American) 115.1; Potassium 3.8 mmol/L (3.5-5.1)
[2020-01-24 06:40] LABS: Albumin Globulin Ratio 0.5 (0.9-2); Bilirubin,Total 0.2 mg/dl (0.2-1); Globulin 3.9 gm/dl (2.5-4.0); Total Protein 5.9 gm/dl (6.4-8.2)
--- NOTE | 2020-01-24 07:20 | Hospitalist Progress Note ---
Date of Service January 24, 2020 Assessment & Plan (1) Pulmonary mass: 45yo M PMH opioid user in remission, presenting with recent significant weight loss, dysphagia, found to have large cavitary leg mass in Left upper lobe. Pulmonary cavitary mass: -CBC and CMP daily and monitor electrolytes and replenish as needed. -Procalcitonin negative, HIV negative, Tb/Quantiferon gold negative -Pulm and oncology consulted, appreciate recs: ----Concern for cancer vs infectious process ----Avoiding drainage for now, rec 4 weeks abx (zosyn to augmentin), repeat CT in 4 weeks ----Will order viral PCR for HIV, ESR >90. -Airborne isolation DCd. Not currently requiring any contact/isolation precautions as no evidence of communicable infectious disease. -AFB sputum cultures x3, however, no sputum production to date. -Blood cultures pending, no growth x 48hrs, no comment updated at 72 hour karla. Abnormal echo -Echo with thickening of mitral chordal apparatus, cannot definitively r/o vegetation -Will need to coordinate with ID/cards/GI for possible GI eval for dysphagia followed by DEVONTE. -Imperative that EGD be performed JULIANNE, no concerns for communicable disease which was relayed as concern over weekend to me by team; EGD rate limiting step for patient care. Dysphagia and hiccups -Pt reportedly has been having health issues for past year, including dysphagia. -Progressively worsening in last month with 20 lb weight loss -GI consulted -Cont protonix -CEA neg, B12, folate normal -CT abd pelvis with cecal thickening ?metabolic dz in bones -Nutritional consult appreciated -Thorazine not helping, will try baclofen and reglan, no current complaints this AM, appears to have helped -Will get Hep B and C workup as patient high risk -Attending physician Dr. Araujo discussed case w/Dr. Capone who commented unlikely TB with negative Quantiferon Gold. Dr. Capone was consulted, but unable to see patient today. -Will make NPO at midnight for planned EGD tomorrow, unable to be performed today as barium coats esophagus which could limit study. -Barium swallow today showed morphologically normal esophagus; There was aspiration with cough reflex. The examination was discontinued at that time. - will still plan to get EGD prior to DEVONTE Pneumonia: As discussed above. Follow-up with blood cultures. Cont zosyn x 4 weeks as above. Code: Full DVTP: SCDs and teds. Dispo: med tele FEN/GI: Regular, easy to chew, NPO; NS with 20 K@80cc/hr (2) Pneumonia: (3) Intractable hiccups: (4) Dysphagia: Admission and Anticipated Discharge Date Admission Date: January 20, 2020 Supervising Physician Co-Signing Physician Notes I saw the patient with the resident physician and confirmed crump portions of the history and physical examination. No significant changes; he continues to have hiccups. Vitals are stable. He is cachectic/chronically ill appearing. He is alert and oriented. Heart is regular. His heart sounds are distant and is difficult to auscultate over his hiccups; No murmur is appreciated Lungs are clear Abdomen is soft and nontender Extremities without edema White blood cell count improved to 11.79 Hemoglobin is stable at 8.9 Platelet count is elevated and slightly up to 730. ESR is more elevated at greater than 90 Echocardiogram comments on thickening of the mitral chordal apparatus; a vegetation cannot be excluded. Ejection fraction 50 to 55%. No wall motion abnormalities. Blood cultures are negative. Possible pulmonary neoplasm v infectious process Cachexia with weight loss Mitral valve thickening, cannot exclude endocarditis Hypoalbuminemia Dysphagia Anemia, iron deficiency Thrombocytosis, likely reactive Plan is to get an EGD to evaluate for malignancy, and or therapeutic dilatation given his dysphasia. Subsequent EGD needs trans-esophageal echocardiogram to exclude vegetation on mitral valve. However, GI and anesthesia team is concerned about possible possible TB. Had discussion with ID team, and with quantiferon GOLD being negative. It is very unlikely that patient has TB. Continue antibiotics -is not clear if this is an infectious process or a malignant process Appreciate recommendations from gastroenterology, oncology, and pulmonology. Subjective Mr. Lujan notes feeling improved overall this AM. He notes he is trying to increase his PO intake but continues to have discomfort with swallowing. However, he is NPO for this morning. No other new acute complaints, doesn't note any other pain at the moment, slept well overnight. No acute overnight events reported. Review of Systems Review of Systems: All systems reviewed & are unremarkable except as noted in HPI & below Physical Exam Constitutional: + thin, cooperative and comfortable Eyes: PERRL, conjunctivae normal, anicteric sclerae ENMT: external ear and nose normal, oropharynx normal Neck: normal visual inspection and trachea midline Respiratory: normal respiratory effort, lungs clear to auscultation no respiratory distress Cardiovascular: RRR, no murmur, no edema Gastrointestinal (Abdomen): Percussion/Palpation: abdomen soft; abdomen nontender, no guarding and abdomen not rigid Musculoskeletal: Head/Neck/Chest: normocephalic and head atraumatic Skin: no rashes, warm and dry Neurologic: moves all extremities and awake Psychiatric: A+Ox3, euthymic affect Results & Data ([facility]) Vital Signs (Past 12 Hours) Vital Signs Temp Pulse Pulse Resp BP BP Pulse Ox 01/24/20 04:54 36.6 C 71 20 90/53 L 95 01/24/20 00:53 62 01/24/20 00:19 36.4 C L 67 20 98/59 L 95 01/23/20 20:17 36.7 C 69 20 91/60 L 94 Resident Activity Tracking Resident Involvement: Resident Care Provided Care Provided: Adult Hospital Medicine (1) Dysphagia Dysphagia type: unspecified Qualified Code(s): R13.10 - Dysphagia, unspecified (2) Pneumonia Laterality: left Lung location: upper lobe of lung Pneumonia type: due to unspecified organism Qualified Code(s): J18.9 - Pneumonia, unspecified organism
[2020-01-24] MEDS: PIPERACILLIN/TAZOBACTAM 3.375 GM in DEXTROSE 5% 100 ML IV SCH ×3 (08:27→23:59)
[2020-01-24] MEDS: NICOTINE 14 MG/24 HR PATCH TD SCH (08:28)
[2020-01-24] MEDS: NSS + 20MEQ KCL 20 MEQ/1,000 ML BAG IV SCH ×2 (08:28→20:57)
--- NOTE | 2020-01-24 09:51 | Fluoroscopy Report ---
DOUBLE CONTRAST BARIUM ESOPHAGRAM CLINICAL HISTORY: Dysphagia. COMPARISON STUDY: No priors. TECHNIQUE: A standard air contrast barium esophagram is performed. Multiple spot images of the esopha dudley are acquired in the upright position. Aspiration was observed in the examination was discontinued . FINDINGS: The patient swallowed barium and the barium pill without difficulty. The mucosal pattern is normal. Mild dysmotility is seen distally. There is no evidence of intrinsic or extrinsic mass lesio n. There was aspiration with cough reflex. The gastroesophageal junction distended normally. No carrie roesophageal reflux was observed on the acquired images. Fluoroscopy time: 0.4 minutes. Fluoroscopic images: 22 IMPRESSION: 1. There was aspiration with cough reflex. The examination was discontinued at that time. 2. The esophagus appears morphologically normal. ACT 112: Negative or not required by law. Electronically signed by: Marques Bearden M.D. 01/24/2020 9:50 AM
--- NOTE | 2020-01-24 10:42 | Pulmonology Progress Note ---
Date of Service January 24, 2020 Assessment & Plan (1) Pulmonary mass: Is a 45-year-old male with a history of IV drug abuse who presents with a 6 x 4 cm fluid-filled mass with cavitation left lung. Oxygenating well on room air HIV fourth-generation screening is negative Influenza a and B are negative on swab QuantiFERON gold is negative Echocardiogram with thickened chordae. Otherwise no evidence of vegetation Blood cultures are negative x2 MRSA swab is negative No bronchoscopy at this point secondary to risk of spillage of the lung abscess into the adjacent lung. Day #5 Zosyn Will need IV antibiotics for 4 to 6 weeks to cover gram-negative and anaerobic organisms. Will need repeat CT of chest in about 3 weeks to monitor progress on IV antibiotics (2) Tobacco abuse: Patient currently with nicotine patch Discussed need for complete abstention of tobacco abuse Patient currently smoking approximately 15 cigarettes/day Continue to encourage smoking cessation (3) Intractable hiccups: Hiccups continue but they are somewhat improved per report of the patient Thorazine is scheduled QTC 460 ms on EKG 01/21/2020 at 12:04 PM Thank you for including us in the care of this patient. Pulmonary will sign off at this time. Please feel free to reconsult as needed Supervising Physician Co-Signing Physician Notes I saw and evaluated the patient with Marques vincent, and agree with findings and plan as documented in the note. Patient seen and examined at bedside. At the time of examination patient was saying that he is feeling much better. He was continuously having hiccups at the time of examination. Not bringing up any phlegm. Denies any chest pain, no headache, no nausea or vomiting. Good appetite. Patient did have a swallow eval which showed patient has aspiration. 2D echo of the patient was not able to rule out vegetation. Recommend DEVONTE. HIV has been negative. HIV viral load and PCR still pending. Will contact from negative. For the abscess that the patient has in the left upper lobe recommend antibiotics to be given for at least 4 weeks. Amoxicillin clavulanate acid which will cover anaerobes as well as gram-negative would be a good option. Patient needs repeat CT chest without contrast to be done in 3 to 4 weeks after discharge. Clinically patient is doing much better. Patient needs to follow-up with coal dumping equipment operator (Dr. Mitchell) as an outpatient. No further recommendation from pulmonary perspective. Will sign off recall if needed. Subjective Attending: Dr. Olmedo Is a 45-year-old male that has a history of IV drug abuse that was admitted with large lung abscess on the left. He has been receiving antibiotics since admission and is now day #5. Currently is receiving Zosyn. Patient has no significant sputum expectoration. Blood cultures have been negative. Is scheduled for EGD tomorrow with GI. Patient states that he continues with fever and night sweats. He feels significantly improved since admission. He currently is oxygenating well on room air and has no specific shortness of breath or dyspnea with exertion. Patient has no acute complaints. Review of Systems Review of Systems: All systems reviewed & are unremarkable except as noted in HPI & below Physical Exam Physical Exam: GENERAL : No acute distress. Appears cachectic EYES: No icterus, gaze conjugate NOSE: No evidence of epistaxis MOUTH: No lesions or candidiasis. Mucosa is moist NECK: Supple LUNGS: Bibasilar crackles. Left greater than right. Patient has decreased breath sounds on the left. No rhonchi. No appreciation of bronchospasm. HEART: Regular, rate is now controlled. Heart rate is in the 80s. ABDOMEN: Soft, NT, ND, BS Present EXTREMITIES: No LE edema, pedal pulses intact NEURO: A&OX3. Answers questions appropriately. Results & Data ([facility]) Vital Signs (Past 12 Hours) Vital Signs Temp Pulse Pulse Resp BP BP Pulse Ox 01/24/20 07:58 86 01/24/20 07:35 37.2 C 96 H 16 99/61 L 95 01/24/20 04:54 36.6 C 71 20 90/53 L 95 01/24/20 00:53 62 01/24/20 00:19 36.4 C L 67 20 98/59 L 95 Laboratory Results 01/24/20 05:44 01/24/20 05:44 Diagnostic Findings DOUBLE CONTRAST BARIUM ESOPHAGRAM 01/24/2020 CLINICAL HISTORY: Dysphagia. COMPARISON STUDY: No priors. TECHNIQUE: A standard air contrast barium esophagram is performed. Multiple spot images of the esophagus are acquired in the upright position. Aspiration was observed in the examination was discontinued. FINDINGS: The patient swallowed barium and the barium pill without difficulty. The mucosal pattern is normal. Mild dysmotility is seen distally. There is no evidence of intrinsic or extrinsic mass lesion. There was aspiration with cough reflex. The gastroesophageal junction distended normally. No gastroesophageal reflux was observed on the acquired images. Fluoroscopy time: 0.4 minutes. Fluoroscopic images: 22 IMPRESSION: 1. There was aspiration with cough reflex. The examination was discontinued at that time. 2. The esophagus appears morphologically normal. ACT 112: Negative or not required by law. Electronically signed by: Marques Bearden M.D. 01/24/2020 9:50 AM PG Care Time/CCT Total # of Minutes Spent Total Time Spent with Patient: Total time spent is greater than 50% in coordina tion of care (as documented) at patient's floor/unit and/or counseling patient: 20 minutes Coding Level of Care Code 39520 Subseq Hosp Care Lvl 2 Diagnoses Pulmonary mass R91.8 Tobacco abuse Z72.0 Intractable hiccups R06.6
[2020-01-24] MEDS: METHADONE ORAL SOLN 2 MG/ML PO SCH (10:50)
[2020-01-24] MEDS: POLYETHYLENE (MIRALAX) 17 GM PACK PO SCH (10:50)
[2020-01-24] MEDS: BACLOFEN 10 MG TAB PO SCH ×2 (10:50→20:56)
[2020-01-24] MEDS: PATIENT'S OWN CONTROLLED MED PO SCH (10:50)
[2020-01-24] MEDS: PANTOprazole 40 MG TAB PO SCH ×2 (10:51→20:55)
[2020-01-24 11:06] LABS: Hepatitis B Surface Ab Quant > 1000.00 mIU/mL (>or=10mIU/mL Immune); Hepatitis B Surface Antibody Immune
[2020-01-24 11:16] LABS: Hepatitis B Surface Antigen Neg (Neg)
[2020-01-24 11:26] LABS: Ferritin 484.6 ng/ml (8-388)
[2020-01-24 11:45] LABS: Hepatitis C IgG 13Yrs+Old_Rflx Neg (Neg)
[2020-01-24] MEDS: METOCLOPRAMIDE HCL INJ 5 MG/ML 2 ML VIAL IV PRN (15:47)
[2020-01-24] MEDS: ALBUMIN 25% 50 ML IV SCH (18:01)
[2020-01-24] MEDS: ACETAMINOPHEN 500 MG TAB PO PRN (20:54)
[2020-01-25] MEDS: LORazepam 1 MG/2 ML VIAL IV SCH ×5 (00:01→23:56)
[2020-01-25 07:32] LABS: Basophils # (auto) 0.04 K/uL (0-0.2); Basophils % (auto) 0.3 %; Eosinophils # (auto) 0.66 K/uL (0-0.5); Eosinophils % (auto) 5.1 %; Hematocrit (blood only) 30.7 % (42-52); Hemoglobin 9.1 g/dL (14.0-18.0); Immature Granulocytes # (auto) 0.14 K/uL (0.00-0.02); Immature Granulocytes % (auto) 1.1 %; Lymphocytes # (auto) 3.08 K/uL (1.2-3.4); Mean Corpuscular Hemoglobin 26.6 pg (25-34); Mean Corpuscular Hgb Conc 29.6 g/dL (32-36); Mean Corpuscular Volume 89.8 fL (80-100); Mean Platelet Volume 8.3 fL (7.4-10.4); Monocytes # (auto) 1.15 K/uL (0.11-0.59); Neutrophils # (auto) 7.77 K/uL (1.4-6.5); Neutrophils % (auto) 60.5 %; Nucleated RBC # (auto) 0.02 K/uL (0-0); Nucleated RBC % (auto) 0.1 %; Platelet Count 857 K/uL (130-400); RDW Coefficient of Variation 14.8 % (11.5-14.5); RDW Standard Deviation 48.6 fL (36.4-46.3); Red Blood Count 3.42 M/uL (4.7-6.1); White Blood Count 12.84 K/uL (4.8-10.8)
--- NOTE | 2020-01-25 07:45 | Hospitalist Progress Note ---
Date of Service January 25, 2020 Assessment & Plan (1) Pulmonary mass: 45yo M PMH opioid user in remission, presenting with recent significant weight loss, dysphagia, found to have large cavitary leg mass in Left upper lobe. Pulmonary cavitary mass: -CBC and CMP daily and monitor electrolytes and replenish as needed. -Procalcitonin negative, HIV negative, Tb/Quantiferon gold negative -Pulm and oncology consulted, appreciate recs: ----Concern for cancer vs infectious process ----Avoiding drainage for now, rec 4 weeks abx (zosyn to augmentin), repeat CT in 4 weeks ----Will order viral PCR for HIV, ESR >90. -Airborne isolation DCd. Not currently requiring any contact/isolation precautions as no evidence of communicable infectious disease. -AFB sputum cultures x3, however, no sputum production to date. -Blood cultures pending, no growth x 48hrs, no comment updated at 72 hour karla. Abnormal echo -Echo with thickening of mitral chordal apparatus, cannot definitively r/o vegetation -Will need to coordinate with ID/cards/GI for possible GI eval for dysphagia followed by DEVONTE, or if still needed as clinical picture points doubt of vegetative leaflet. Dysphagia and hiccups -Pt reportedly has been having health issues for past year, including dysphagia. -Progressively worsening in last month with 20 lb weight loss -GI consulted -Cont protonix -CEA neg, B12, folate normal -CT abd pelvis with cecal thickening ?metabolic dz in bones -Nutritional consult appreciated -Thorazine not helping, will try baclofen and reglan, no current complaints this AM, appears to have helped -Hep B and C negative for infection, with Hep B immunity WNL -3/ Attending physician Dr. Araujo discussed case w/Dr. Capone who commented unlikely TB with negative Quantiferon Gold. Dr. Capone was consulted, but unable to see patient today. -planned EGD today. -Barium swallow 3/2 showed morphologically normal esophagus; There was aspiration with cough reflex. The examination was discontinued at that time. Pneumonia: As discussed above. Follow-up with blood cultures. Cont zosyn x 4 weeks as above. Code: Full DVTP: SCDs and teds. Dispo: med tele FEN/GI: Regular, easy to chew, NPO; NS with 20 K@80cc/hr (2) Pneumonia: (3) Intractable hiccups: (4) Dysphagia: Admission and Anticipated Discharge Date Admission Date: January 20, 2020 Supervising Physician Co-Signing Physician Notes I saw the patient with the resident physician and confirmed crump portions of the history and physical examination. No significant changes; During examination, patient did not have any hiccups today. Patient asked to go to the [employer], but became upset that he had to be accompanied by someone.. Vitals are stable. He is cachectic/chronically ill appearing. He is alert and oriented. Heart is regular. His heart sounds are distant; No murmur is appreciated Lungs are clear Abdomen is soft and nontender Extremities without edema White blood cell count is now 12.8 Hemoglobin is stable at 9.1 Platelet count is elevated and up to 857. ESR is more elevated at greater than 90 Echocardiogram comments on thickening of the mitral chordal apparatus; a vegetation cannot be excluded. Ejection fraction 50 to 55%. No wall motion abnormalities. Blood cultures are negative. Possible pulmonary neoplasm v infectious process Cachexia with weight loss Mitral valve thickening, cardio does not believe this to be a vegetation. Hypoalbuminemia Dysphagia Anemia, iron deficiency Thrombocytosis, likely reactive Plan is to get an EGD to evaluate for malignancy, and or therapeutic dilatation given his dysphasia. EGD completed and normal. D/W cardio, do not believe patient has a vegetation. [place] hold off DEVONTE at this time. Will monitor patient overnight as WBC slightly worsened today. IF CLINICALLY DOING WELL, will discharge on 01/26/20 Continue antibiotics -is not clear if this is an infectious process or a malignant process Appreciate recommendations from gastroenterology, oncology, and pulmonology. Subjective Mr. Lujan is hopeful he would be able to go home not to long after EGD. He notes feeling well enough to leave and that he is getting antsy from prolonged hospital stay. Mom was at bedside and we discussed questions and concerns. Review of Systems Review of Systems: All systems reviewed & are unremarkable except as noted in HPI & below Physical Exam Constitutional: + thin, cooperative and comfortable Eyes: PERRL, conjunctivae normal, anicteric sclerae ENMT: external ear and nose normal, oropharynx normal Neck: normal visual inspection and trachea midline Respiratory: normal respiratory effort, lungs clear to auscultation no respiratory distress Cardiovascular: RRR, no murmur, no edema Gastrointestinal (Abdomen): Percussion/Palpation: abdomen soft; abdomen nontender, no guarding and abdomen not rigid Musculoskeletal: Head/Neck/Chest: normocephalic and head atraumatic Skin: no rashes, warm and dry Neurologic: moves all extremities and awake Psychiatric: A+Ox3, euthymic affect Results & Data ([facility]) Vital Signs (Past 12 Hours) Vital Signs Temp Pulse Pulse Resp BP Pulse Ox 01/25/20 07:31 36.5 C 76 16 96/68 L 93 01/25/20 03:41 36.4 C L 71 16 104/72 96 01/25/20 01:51 65 01/24/20 23:41 36.5 C 74 16 95/60 L 95 01/24/20 22:00 68 Resident Activity Tracking Resident Involvement: Resident Care Provided Care Provided: Adult Hospital Medicine (1) Dysphagia Dysphagia type: unspecified Qualified Code(s): R13.10 - Dysphagia, unspecified (2) Pneumonia Laterality: left Lung location: upper lobe of lung Pneumonia type: due to unspecified organism Qualified Code(s): J18.9 - Pneumonia, unspecified organism
[2020-01-25 07:55] LABS: Albumin Level 2.3 gm/dl (3.4-5.0); Calcium 9.1 mg/dl (8.5-10.1); Creatinine Clr Calc Pharmacy 100.5 ml/min; Est GFR (Non-African American) 117.4; Potassium 3.9 mmol/L (3.5-5.1)
[2020-01-25 07:58] LABS: Albumin Globulin Ratio 0.5 (0.9-2); Bilirubin,Total 0.1 mg/dl (0.2-1); Globulin 4.4 gm/dl (2.5-4.0); Total Protein 6.7 gm/dl (6.4-8.2)
[2020-01-25] MEDS ORDERED: D5NSS + 20MEQ KCL 20 MEQ/1,000 ML BAG IV SCH (08:00)
[2020-01-25] MEDS: PIPERACILLIN/TAZOBACTAM 3.375 GM in DEXTROSE 5% 100 ML IV SCH ×3 (08:09→23:57)
[2020-01-25] MEDS: METHADONE ORAL SOLN 2 MG/ML PO SCH (08:09)
[2020-01-25] MEDS: PATIENT'S OWN CONTROLLED MED PO SCH (08:10)
[2020-01-25] MEDS: POLYETHYLENE (MIRALAX) 17 GM PACK PO SCH (09:04)
[2020-01-25] MEDS: PANTOprazole 40 MG TAB PO SCH ×2 (09:11→20:36)
[2020-01-25] MEDS: BACLOFEN 10 MG TAB PO SCH ×2 (09:11→20:36)
[2020-01-25] MEDS: NICOTINE 14 MG/24 HR PATCH TD SCH (09:11)
--- NOTE | 2020-01-25 09:37 | Billing Data ---
Date of Service January 24, 2020 Coding Level of Care Code 63352 Subseq Hosp Care Lvl 3 Time Spent (min) 35
--- NOTE | 2020-01-25 10:13 | Gastroenterology Progress Note ---
Date of Service January 25, 2020 Assessment & Plan (1) Dysphagia: (2) Weight loss: (3) Fever: (4) Intractable hiccups: (5) Pulmonary mass: Pt is a 45 y/o male w symptoms of difficulty and painful swallowing, poor appetite, weight loss for 2 months. Recent hiccups as well. Plan: EGD today. Further recommendations to follow EGD. Admission and Anticipated Discharge Date Admission Date: January 20, 2020 Supervising Physician Co-Signing Physician Notes I have seen and examined the patient JOANIE Van whose note reflects our findings and plan. EGD today Subjective Mr. Lujan is a 45 yr old male who c/o dysphagia, feeling that foods "get stuck," (pointing to the base of the throat). This began about 2 months ago and recently occurs consistently with any solids. He is able to clear by repeated swallows. No nausea, vomiting or abdominal pain. 10# weight loss in the past 2 months (always a very thin person). Denies any melena or hematochezia. Being tx for infectious lung cavitation. Non-TB. Review of Systems Review of Systems: ROS: Gen: + weight loss. Denies weakness, fevers Eyes: No eye redness, or pain, no recent vision changes Resp: No SOB, no cough Cardio: No palpitations/irregular beats, no chest pain GI: See Subjective : Denies pain on urination Skin: No jaundice, itching or new rashes Physical Exam Constitutional: WD/WN, vitals as above + ill appearing and + cachectic chronically ill appearing Eyes: PERRL, conjunctivae normal, anicteric sclerae ENMT: external ear and nose normal, oropharynx normal Neck: trachea midline, no thyromegaly Respiratory: normal respiratory effort, lungs clear to auscultation Cardiovascular: RRR, no murmur, no edema Gastrointestinal (Abdomen): normal bowel sounds, soft, nontender, no hepatosplenomegaly Musculoskeletal: Head/Neck/Chest: normocephalic Extremities: no cyanosis, no clubbing and no petechiae Skin: no rashes, warm and dry Neurologic: patellar DTR's 2+ bilat, sensation intact Psychiatric: A+Ox3, euthymic affect Lymphatic: no cervical or axillary lymphadenopathy Results & Data ([facility]) Vital Signs (Past 12 Hours) Vital Signs Temp Pulse Pulse Resp BP Pulse Ox 01/25/20 07:31 36.5 C 76 16 96/68 L 93 01/25/20 03:41 36.4 C L 71 16 104/72 96 01/25/20 01:51 65 01/24/20 23:41 36.5 C 74 16 95/60 L 95 (1) Fever Fever type: unspecified Qualified Code(s): R50.9 - Fever, unspecified (2) Dysphagia Dysphagia type: unspecified Qualified Code(s): R13.10 - Dysphagia, unspecified
--- NOTE | 2020-01-25 11:20 | Anesthesiology Consultation ---
Date of Service January 25, 2020 Assessment & Plan (1) Encounter for pre-operative examination: Chart Review Chart Review: Acceptable Risk for Surgery and Patient NOT seen in Pre Admission Testing Consults Requested none ASA ASA3 Proposed Anesthesia Anesthesia Type: MAC Risk / Benefits Reviewed With: PT / POA / Parent / Guardian, Accepts Plan and Informed Consent Obtained History Surgery Operation Date: 01/25/20 16:30 Proposed Procedures p Esophagogastroduodenoscopy Dr Macias - Marissa Macias Height/Weight Height: 5 ft 10 in Weight: 49 kg Allergies Allergy/AdvReac Type Severity Reaction Status Date / Time No Known Allergies Allergy Verified 01/25/20 11:53 Medications Home Medications Medication Instructions Recorded Confirmed Last Taken diphenhydramine-acetaminophen 2 tab PO HS PRN 01/20/20 01/20/20 01/19/20 19:30 [Tylenol PM Extra Strength] 2 tablets methadone 116 mg PO QAM 01/20/20 01/20/20 01/20/20 Active Medications Generic Name Dose Route Start Last Admin Trade Name Freq PRN Reason Stop Dose Admin Acetaminophen 650 mg 01/20/20 15:13 01/23/20 18:33 Tylenol PO 02/19/20 15:12 650 mg Q4H PRN Administration Pain or Fever Acetaminophen 1,000 mg 01/20/20 21:00 01/24/20 20:54 Tylenol PO 02/19/20 20:59 1,000 mg HS PRN Administration Sleep Protocol Baclofen 10 mg 01/21/20 21:00 01/25/20 09:11 Lioresal PO 02/20/20 20:59 10 mg BID IRA Administration Diphenhydramine HCl 50 mg 01/20/20 21:00 01/24/20 20:54 Benadryl Capsule PO 02/19/20 20:59 50 mg HS PRN Administration Sleep Protocol Piperacillin Sod/Tazobactam 115 mls @ 28.75 mls/hr 01/20/20 16:00 01/25/20 08:09 Sod 3.375 gm/ Dextrose IV 01/27/20 15:59 28.8 mls/hr Q8H IRA Administration Protocol Albumin Human 50 mls @ 50 mls/hr 01/22/20 18:00 01/24/20 19:29 Albumin 25% IV 01/25/20 17:59 Infused DAILY@1800 IRA Infusion Lorazepam 1 mg in 2 mls @ 2 mls/min 01/23/20 12:00 01/25/20 05:45 Ativan IV 02/22/20 11:59 2 mls/min Q6HWA IRA Administration Potassium Chloride/Dextrose/Sod Cl 20 meq in 1,000 mls @ 80 mls/hr 01/25/20 08:00 01/25/20 09:11 D5nss + 20meq Kcl IV 01/25/20 20:29 80 mls/hr .[id number] IRA Administration Ioversol 94 ml 01/21/20 12:34 01/21/20 12:34 Optiray 320 100ml IV 01/25/20 12:33 94 ml ONCE PRN Administration Interaction Checking Lorazepam 0.5 mg 01/23/20 09:47 01/23/20 12:47 Ativan PO 02/22/20 09:46 0.5 mg Q2H PRN Administration Anxiety Methadone HCl 116 mg 01/21/20 09:00 01/25/20 08:09 Methadone Hcl PO 02/04/20 08:59 116 mg QAM IRA Administration Metoclopramide HCl 10 mg 01/23/20 04:16 01/24/20 15:47 Reglan IV 02/22/20 04:15 10 mg Q6H PRN Administration hiccups Miscellaneous 1 ea 01/24/20 08:59 01/25/20 09:11 Remove Nicoderm Patch N/A 02/23/20 08:58 1 ea DAILY@[id number] IRA Administration Nicotine 14 mg 01/23/20 09:15 01/25/20 09:11 Nicoderm Cq TD 02/22/20 09:14 14 mg QAM IRA Administration Non-Formulary Medication 1 ea 01/21/20 09:00 01/25/20 08:10 Patient's Own Controlled Med PO 02/04/20 08:59 1 mg QAM IRA Administration Pantoprazole Sodium 40 mg 01/20/20 21:00 01/25/20 09:11 Protonix PO 02/19/20 20:59 40 mg BID IRA Administration Polyethylene Glycol 17 gm 01/22/20 09:00 01/25/20 09:04 Miralax Powder Packet PO 02/21/20 08:59 Not Given DAILY IRA Past Medical History Medical History Heroin abuse No pertinent past medical history Tobacco abuse Exercise / Class Metabolic Activity III < 4 Walking/Shop/Light housework Negative for chest pain or shortness of breath. Past Family History Family History Other Cancer Past Surgical History Surgical History No pertinent past surgical history Past Anesthesia History No Hx of Anesthesia Complications History of PONV No Hx of PONV Social History Smoking Status: Current every day smoker tobacco type: cigarettes Smoking cigarettes per day: 1 pack/day Do You Dip or Chew Tobacco: No Hx Alcohol Use: No Hx Substance Use: Yes (Not present w/ substance abuse.) substance use type: unknown Last Used Substance Other:: None used. Review of Systems Patient denies active symptoms of GERD. Physical Exam Vital Signs Last Vital Signs Temp 36.8 C 01/25/20 11:50 Pulse 84 01/25/20 11:50 Resp 16 01/25/20 11:50 BP 95/64 L 01/25/20 11:50 Pulse Ox 94 01/25/20 11:50 Constitutional + cachectic; not obese ENMT Mouth: no TMJ abnormality and oral opening not small Thyromental Distance: > or= 3.5 Finger Breadths Mallampati Class: II Neck normal visual inspection; neck extension not limited Respiratory normal respiratory effort Auscultation: lungs clear to auscultation bilaterally Cardiovascular Rate/Rhythm: regular rate and regular rhythm Heart Sounds: no murmur Neurologic moves all extremities Psychiatric Orientation: alert and oriented x 3 Testing Laboratory Results 01/25/20 06:56 01/25/20 06:56 PT 13.0 Seconds (9.0-12.0) H 01/20/20 08:04 INR 1.3 (0.9-1.1) H 01/20/20 08:04 APTT 34.8 Seconds (21.0-31.0) H 01/20/20 08:04 Hemoglobin A1c 6.0 % (4.5-5.6) H 01/20/20 15:49 01/20/20 08:00 Aerobic Blood Culture - Final Blood No growth in Aerobic bottle after 5 days. Anaerobic Blood Culture - Final No growth in Anaerobic bottle after 5 days. 01/20/20 08:04 Aerobic Blood Culture - Final Blood No growth in Aerobic bottle after 5 days. Anaerobic Blood Culture - Final No growth in Anaerobic bottle after 5 days. Electrocardiogram Date: 01/20/20 Sinus tachycardia (103) Rightward axis Borderline ECG When compared with ECG of 20-JAN-2020 07:49, Premature atrial complexes are no longer Present Chest X-Ray Date: 01/20/20 A 7.3 x 4.6 cm left suprahilar irregular airspace opacity. This could represent a pneumonia. However, a pulmonary mass could also have a similar appearance. Contrast-enhanced chest CT recommended for further evaluation. Echocardiogram Date: 01/21/20 EF: 50-55 LV Function: low normal RWMA: + none thickening of the mitral chordal apparatus, no other significant valve disease
--- NOTE | 2020-01-25 11:54 | Infectious Disease Consult ---
Date of Consultation January 25, 2020 Assessment & Plan (1) Pulmonary mass: concerned for underlying malignancy as well, will need plans for tissue diagnosis. negative quant unlikely in patient with TB, especially if HIV negative. negative procalcitonin speaks against abscess, will defer abx ma nagement to pulm. History of Present Illness Attending Physician: Valente Araujo pt admitted with weight loss and generalized fatigue, was in [place], mom concerned about general well being and he has been here for some time. does have h/o heroin use but denies IV use, now in local methadone clinic. HIV testing negative this admission. His major complaint today is of painful swallowing and weight loss over several months. not eating as well due to pain, denies n/v/d. for EGD. CT abd showed cecal inflammation, ct chest showed 6x3.7cm mass with central necrosis, highly concerning for malignancy, oncology following and concerned as well. pulm was following, and felt patient not to be candidate for broch, felt mass in lung likely abscess, given zosyn with plans for transition to augmentin for several weeks with plans to repeat imaging. wbc improving, afebrile since admission, denies cough, no sob, no wheeze, blood cultures negative. procalcitonin negative. flu swab negative. Echo with mv thickening no veg. pt was to have DEVONTE but needs EGD prior to assess for stricture and possible dilation. IGRA done and negative, pt has no known tb risk factors, no night sweats, no f/c, no productive cough, does admit to weight loss. mom at bedside. ID asked toeval regarding TB risk as GI has deferred EGD due to concern for tb. Allergies Allergy/AdvReac Type Severity Reaction Status Date / Time No Known Allergies Allergy Verified 01/25/20 11:53 Home Medications Home Medications Medication Instructions Recorded Confirmed Type diphenhydramine-acetaminophen 2 tab PO HS PRN 01/20/20 01/20/20 History [Tylenol PM Extra Strength] methadone 116 mg PO QAM 01/20/20 01/20/20 History Patient History Medical History Heroin abuse No pertinent past medical history Tobacco abuse Surgical History No pertinent past surgical history Family History Other Cancer Social History Preferred Language: Togolese Communication Ability: Effective Actuary Required: No Beliefs That Will Affect Care: None Current Living Situation: Family and Other Current Living Situation Comment: Lives w/ mother. Feels Safe at Home: Yes Smoking Status: Current every day smoker Tobacco Type: cigarettes ; Cigarettes Per Day: 1 pack/day ; Hx Alcohol Use: No Hx Substance Use: Yes (Not present w/ substance abuse.) substance use type: unknown Review of Systems Review of Systems: All systems reviewed & are unremarkable except as noted in HPI & below Physical Exam Constitutional: WD/WN, vitals as above + cachectic Eyes: PERRL, conjunctivae normal, anicteric sclerae ENMT: external ear and nose normal, oropharynx normal Neck: normal visual inspection Respiratory: normal respiratory effort, lungs clear to auscultation Cardiovascular: RRR, no murmur, no edema Gastrointestinal (Abdomen): normal bowel sounds, soft, nontender, no hepatosplenomegaly Musculoskeletal: no cyanosis or clubbing, extremities motor strength 5/5 Skin: no rashes, warm and dry Psychiatric: A+Ox3, euthymic affect Results & Data ([facility]) Vital Signs (Past 12 Hours) Vital Signs Temp Pulse Pulse Resp BP Pulse Ox 01/25/20 07:31 36.5 C 76 16 96/68 L 93 01/25/20 03:41 36.4 C L 71 16 104/72 96 01/25/20 01:51 65 Laboratory Results Microbiology 01/20/20 08:00 Blood Aerobic Blood Culture - Final No growth in Aerobic bottle after 5 days. 01/20/20 08:00 Blood Anaerobic Blood Culture - Final No growth in Anaerobic bottle after 5 days. 01/20/20 08:04 Blood Aerobic Blood Culture - Final No growth in Aerobic bottle after 5 days. 01/20/20 08:04 Blood Anaerobic Blood Culture - Final No growth in Anaerobic bottle after 5 days. PG Care Time/CCT Total # of Minutes Spent Total Time Spent with Patient: Total time spent is greater than 50% in coordination of care (as documented) at patient's floor/unit and/or counseling patient: Coding Level of Care Code 75207 Inpt Consult Level 4 Diagnoses Pulmonary mass R91.8
[2020-01-25] MEDS ORDERED: LIDOCAINE HCL 2% 2 ML VIAL/AMP(20MG/ML) INFIL ONE (12:10)
[2020-01-25] MEDS ORDERED: PROPOFOL IV EMULSION 10 MG/ML 20 ML VIAL IV ONE (12:10)
--- NOTE | 2020-01-25 13:13 | Anesthesiology Progress Note ---
Date of Service January 25, 2020 Anesthesia Post Procedure Vital Signs Vital Signs: Temp Pulse Pulse Resp BP BP Pulse Ox 01/25/20 13:01 67 18 97/48 L 96 01/25/20 12:44 37.0 C 67 18 81/47 L 100 01/25/20 12:33 37.0 C 68 18 76/47 L 100 01/25/20 11:54 37.0 C 77 18 99/62 L 96 01/25/20 11:50 36.8 C 84 16 95/64 L 94 01/25/20 07:31 36.5 C 76 16 96/68 L 93 01/25/20 03:41 36.4 C L 71 16 104/72 96 01/25/20 01:51 65 01/24/20 23:41 36.5 C 74 16 95/60 L 95 01/24/20 22:00 68 01/24/20 19:30 36.5 C 74 16 99/66 L 97 01/24/20 15:18 96 H Pain Intensity Throat: Pain Intensity: 5 Transfer of Care Handoff Completed per policy Notes Mental Status: alert / awake / arousable and participated in evaluation Nausea / Vomiting: adequately controlled Pain: adequately controlled Airway Patency, RR, SpO2: stable & adequate BP & HR: stable & adequate Hydration State: stable & adequate Anesthetic Complications: no major complications apparent and Pt Satisfied with anesthetic care
--- NOTE | 2020-01-25 13:24 | GI REPORT ---
Patient Name: Juanjo Lujan Procedure Date: 01/25/2020 12:08 PM Date of : 1975 Admit Type: Inpatient Age: 45 Gender: Male Attending MD: Marissa Macias DO Procedure: Upper GI endoscopy Providers: Marissa Macias DO Referring MD: Valente Araujo M.d. Indications: Odynophagia Medicines: Propofol per Anesthesia Complications: No immediate complications. Estimated blood loss: None. Estimated Blood Loss: Estimated blood loss: none. Procedure: Pre-Anesthesia Assessment: - Prior to the procedure, a History and Physical was performed, and patient medications, allergies and sensitivities were reviewed. The patient's tolerance of previous anesthesia was reviewed. - The risks and benefits of the procedure and the sedation options and risks were discussed with the patient. All questions were answered and informed consent was obtained. - Patient identification and proposed procedure were verified prior to the procedure by the physician and the nurse. The procedure was verified in the pre-procedure area in the procedure room. - Mental Status Examination: alert and oriented. Airway Examination: normal oropharyngeal airway and neck mobility. Respiratory Examination: clear to auscultation. CV Examination: normal. Abdominal Examination: bowel sounds present, abdomen soft and non-tender, no masses or organomegaly noted. - ASA Grade Assessment: III - A patient with severe systemic disease. After obtaining informed consent, the endoscope was passed under direct vision. Throughout the procedure, the patient's blood pressure, pulse, and oxygen saturations were monitored continuously. The Endoscope was introduced through the mouth, and advanced to the second part of duodenum. The upper GI endoscopy was accomplished without difficulty. The patient tolerated the procedure well. Findings: The esophagus was normal. The stomach was normal. The examined duodenum was normal. Impression: - Normal esophagus. - Normal stomach. - Normal examined duodenum. - No specimens collected. Recommendation: - Return patient to [facility] for ongoing care. Marissa Macias D.O. Marissa Macias DO 01/25/2020 1:23:44 PM This report has been signed electronically. Note Initiated On: 01/25/2020 12:08 PM Number of Addenda: 0 I attest to the content of the Intraoperative Record and orders documented therein, exceptions below {[id number]}
--- NOTE | 2020-01-25 13:25 | Anesthesiology Progress Note ---
Date of Service January 25, 2020 Anesthesia Post Procedure Vital Signs Vital Signs: Temp Pulse Pulse Resp BP BP Pulse Ox 01/25/20 13:15 71 18 102/62 96 01/25/20 13:01 67 18 97/48 L 96 01/25/20 12:44 37.0 C 67 18 81/47 L 100 01/25/20 12:33 37.0 C 68 18 76/47 L 100 01/25/20 11:54 37.0 C 77 18 99/62 L 96 01/25/20 11:50 36.8 C 84 16 95/64 L 94 01/25/20 07:31 36.5 C 76 16 96/68 L 93 01/25/20 03:41 36.4 C L 71 16 104/72 96 01/25/20 01:51 65 01/24/20 23:41 36.5 C 74 16 95/60 L 95 01/24/20 22:00 68 01/24/20 19:30 36.5 C 74 16 99/66 L 97 01/24/20 15:18 96 H Pain Intensity Throat: Pain Intensity: 5 Transfer of Care Handoff Completed per policy Notes Mental Status: alert / awake / arousable and participated in evaluation Nausea / Vomiting: adequately controlled Pain: adequately controlled Airway Patency, RR, SpO2: stable & adequate BP & HR: stable & adequate Hydration State: stable & adequate Anesthetic Complications: no major complications apparent and Pt Satisfied with anesthetic care
[2020-01-25] MEDS: ACETAMINOPHEN 500 MG TAB PO PRN (20:36)
[2020-01-26] MEDS: LORazepam 1 MG/2 ML VIAL IV SCH ×2 (06:06→10:30)
--- NOTE | 2020-01-26 06:46 | Billing Data ---
Date of Service January 25, 2020 Coding Level of Care Code 56503 Subseq Hosp Care Lvl 3 Time Spent (min) 35
[2020-01-26 07:37] LABS: Basophils # (auto) 0.03 K/uL (0-0.2); Basophils % (auto) 0.2 %; Eosinophils # (auto) 0.58 K/uL (0-0.5); Eosinophils % (auto) 3.8 %; Hematocrit (blood only) 27.1 % (42-52); Hemoglobin 8.4 g/dL (14.0-18.0); Immature Granulocytes % (auto) 1.3 %; Lymphocytes # (auto) 2.82 K/uL (1.2-3.4); Lymphocytes % (auto) 18.6 %; Mean Corpuscular Hemoglobin 27.1 pg (25-34); Mean Corpuscular Volume 87.4 fL (80-100); Mean Platelet Volume 8.1 fL (7.4-10.4); Monocytes # (auto) 1.34 K/uL (0.11-0.59); Monocytes % (auto) 8.8 %; Neutrophils # (auto) 10.23 K/uL (1.4-6.5); Neutrophils % (auto) 67.3 %; Platelet Count 777 K/uL (130-400); RDW Coefficient of Variation 14.9 % (11.5-14.5); RDW Standard Deviation 47.8 fL (36.4-46.3)
[2020-01-26 08:12] LABS: BUN Creatinine Ratio 8.5 (10-20); Calcium 9.2 mg/dl (8.5-10.1); Creatinine Clr Calc Pharmacy 113.6 ml/min; Est GFR (African American) 140.7; Est GFR (Non-African American) 121.4; Potassium 3.8 mmol/L (3.5-5.1)
[2020-01-26] MEDS ORDERED: LACTATED RINGER'S 1,000 ML IV ONE (08:35)
[2020-01-26] MEDS: METHADONE ORAL SOLN 2 MG/ML PO SCH (08:50)
[2020-01-26] MEDS: PIPERACILLIN/TAZOBACTAM 3.375 GM in DEXTROSE 5% 100 ML IV SCH (08:51)
[2020-01-26] MEDS: NICOTINE 14 MG/24 HR PATCH TD SCH (08:52)
[2020-01-26] MEDS: POLYETHYLENE (MIRALAX) 17 GM PACK PO SCH (08:53)
[2020-01-26] MEDS: PANTOprazole 40 MG TAB PO SCH (08:53)
[2020-01-26] MEDS: PATIENT'S OWN CONTROLLED MED PO SCH (08:53)
[2020-01-26] MEDS: BACLOFEN 10 MG TAB PO SCH (09:49)
--- NOTE | 2020-01-26 11:07 | Discharge Summary ---
Date of Service January 26, 2020 Admission HPI Per Admitting Provider The patient is a 45 years old male with past medical history of snoring heroine for 6 months and then joining [facility] for the past 6 months. Patient reports not ever using IV heroin. Patient is bisexual. He reports smoking 10 cigarettes/day for past 20 years. Patient states that he had PPD test done in the methadone clinic as well as syphilis test which were both negative.HIV test was not done.Patient presented now to the emergency room with a complaint of nausea and vomiting and not being able to swallow solid food for 1 month. Patient is now has low grade fever with temperature of 37.9(100.22F) Patient reports losing 10 pounds.Patient is otherwise mobile and lives with his mother.Patient denies recent travel. He denies chills, chest pain, shortness of breath, abdominal pain, frequency, urgency.Labs are reviewed which shows:WBC is 18.04, RBCs 3.71, hemoglobin 10.2, hematocrit 32.2, platelets 879,Neutrophils 13.61,Sodium 134, potassium 3.9, chloride 98,Carbon dioxide 28, anion gap 7, BUN 8, creatinine 0.63,GFR 117.4, lactate 1.1,calcium 9.4, total bili 0.3,AST 20, ALT 33, alkaline phosphatase 116, total protein 7.9, albumin 2.6, globulin 5.3,Influenza A and B- both negative.Chest x-ray of the necksoft shows no pathological neck masses identified, left supraclavicular lymph node- 9 mm at the upper limits of normal size. Normal trabecular pattern of the bone. Clinical correlation in regards of metabolic disease is recommended. Chest x- rays CT scan of thorax shows 1.6 x 3.7 cm thick-walled fluid-filled mass like abnormality with cavitation in the left lungs which extends across the fissure and involves the apical posterior segment of the left upper lobe and the superior segment of the left lower lobe. Adjacent irregular 1.6 cm nodule. These findings may reflect a neoplastic process with necrotic neoplasm. However an infectious process with lung abscess or less likely empyema could appear similar. Although unlikely tuberculosis is within the differential.There was also seen mild emphysema. Mild esophageal wall thickening. Prominent upper abdominal lymph nodes. Diffuse increase sclerosis and heterogeneity of visualized skeletal structure. This raises the possibility of metabolic bone disease. Metastatic disease is within the differential although considered less likely.Due to all of these concerns and patient not being able to swallow for 1 month and having nausea and vomiting,weight loss, lung mass,and intractable hiccups will admit pt to [facility] for further evaluation and treatment. Principal Diagnosis Lung Abscess Discharge Exam Constitutional + thin, cooperative and comfortable Eyes PERRL, conjunctivae normal, anicteric sclerae ENMT external ear and nose normal, oropharynx normal Neck normal visual inspection and trachea midline Respiratory normal respiratory effort, lungs clear to auscultation no respiratory distress Cardiovascular RRR, no murmur, no edema Gastrointestinal (Abdomen) Percussion/Palpation: abdomen soft; abdomen nontender, no guarding and abdomen not rigid Musculoskeletal Head/Neck/Chest: normocephalic and head atraumatic Skin no rashes, warm and dry Neurologic moves all extremities and awake Psychiatric A+Ox3, euthymic affect Discharge Data Allergies Allergy/AdvReac Type Severity Reaction Status Date / Time No Known Allergies Allergy Verified 01/25/20 11:53 Consultations 01/20/20 09:54 Consult Health Information Management Stat 01/20/20 10:49 ED Decision to Admit Stat 01/20/20 15:13 Consult Gastroenterology Routine Consult Hematology Routine Consult Pulmonology Routine 01/24/20 09:35 Consult Infectious Diseases Routine Procedures Performed Operation Date: 01/25/20 16:30 Actual Procedures p Esophagogastroduodenoscopy - Marissa Macias Ordered Studies 01/20/20 08:10 CT soft tissue neck w con Stat 01/20/20 08:45 CT chest w con Stat 01/21/20 12:30 CT abd pelvis oral and IV con Routine 01/24/20 09:30 FL barium swallow Routine Hospital Course (1) Pulmonary mass: 45yo M PMH opioid user in remission, presenting with recent significant weight loss, dysphagia, found to have large cavitary leg mass in Left upper lobe. Had EEG which was normal. University that since no signs of endocarditis, did not warrant a DEVONTE. He had a swallowing study which he aspirated on but was noted to have normal esophagus morphology. TERMITE TECHNICIAN provided recs on discharge to patient. The plan for Mr. Lujan is to continue Augmentin 875mg BID for 4 weeks. He will need a repeat CT Scan of chest in 3-4 weeks to re-evaluate Abscess. There is recommendation that after chest CT that he might require another 2 weeks of antibiotics. Also, Oncology was concerned that this could be from malignancy as this was commented on the prelim radiology reads as a differential. But specialists deferred intervention and plan of treatment was antibiotics. He also was given a script for Probiotic to be taken BID. He was strongly advised to refrain from Heroin use and to stop smoking. He was very anxious to leave hospital on day of discharge, refused Zosyn IV. He did not want help with rehab. TB Quant gold was negative, HIV screen was negative (viral load pending per Heme/onc request), Hep B and C negative for infection. He was strongly encouraged to increase nutrition as he is very much underweight. Pulmonary cavitary mass: -CBC and CMP daily and monitor electrolytes and replenish as needed. -Procalcitonin negative, HIV negative, Tb/Quantiferon gold negative -Pulm and oncology consulted ----Concern for cancer vs infectious process ----Avoiding drainage for now, rec 4 weeks abx (zosyn to augmentin), repeat CT in 4 weeks ----Will order viral PCR for HIV, ESR >90. -Airborne isolation DCd. Not currently requiring any contact/isolation precautions as no evidence of communicable infectious disease. -AFB sputum cultures x3, however, no sputum production to date. -Blood cultures pending, no growth x 48hrs, no comment updated at 72 hour karla. Abnormal echo -Echo with thickening of mitral chordal apparatus, cannot definitively r/o vegetation -Will need to coordinate with ID/cards/GI for possible GI eval for dysphagia followed by DEVONTE, or if still needed as clinical picture points doubt of vegetative leaflet. Dysphagia and hiccups -Pt reportedly has been having health issues for past year, including dysphagia. -Progressively worsening in last month with 20 lb weight loss -GI consulted -Cont protonix -CEA neg, B12, folate normal -CT abd pelvis with cecal thickening ?metabolic dz in bones -Nutritional consult appreciated -Thorazine not helping, will try baclofen and reglan, no current complaints this AM, appears to have helped -Hep B and C negative for infection, with Hep B immunity WNL -3/ Attending physician Dr. Araujo discussed case w/Dr. Capone who commented unlikely TB with negative Quantiferon Gold. Dr. Capone was consulted, but unable to see patient today. -planned EGD today. -Barium swallow / showed morphologically normal esophagus; There was aspiration with cough reflex. The examination was discontinued at that time. Pneumonia: As discussed above. Follow-up with blood cultures. Cont zosyn x 4 weeks as above. Code: Full DVTP: SCDs and teds. Dispo: Home with outpatient follow up FEN/GI: Regular (2) Pneumonia: (3) Intractable hiccups: (4) Dysphagia: Total Time Total Time Spent Total Time Spent (In Minutes): Greater than 30 Total Time Includes: Examination of the Patient, Discharge Planning, Medication Reconciliation and Communication With Other Providers Discharge Plan Discharge Items Patient Disposition: Home - Self-Care Reason For Visit: NAUSEA,VOMITING,HICCUPS,MASS IN THE LUNG Discharge Diagnosis: Lung Abscess Activity: Per Instructions section Non-emergency contact: Primary Care Provider Call non-emergency contact if: you have any medication questions, your symptoms worsen and you have a fever Follow-up/Referrals: Niki Prieto CRNP [Primary Care Provider] - 01/31/20 12:30 pm Diet: Regular Addtl Attending Provider Instructions: Mr. Lujan the plan going forward is to continue Augmentin Antibiotic for 4 weeks. You will need to get a repeat Chest CT in 2-3 weeks, which your Primary Care Physician will order. You had a 6 x 4 cm fluid-filled mass with cavitation left lung which will be treated as an abscess. There is still concern that this could be a malignancy such as cancer. The repeat CT Chest scan will help to determine next steps if it appears that Antibiotics did not help to resolve this cavitation. You must follow up on this. - You will take Augmentin 875mg pill, take one pill, twice per day AM and PM. Y ou will take this for 4 weeks, but possible might require an additional 2 weeks of treatment for a total course of 6 weeks. - It is also recommended you take a Probiotic that contains Saccharomyces Boulardii 250mg pill, one pill taken twice per day AM and PM, as antibiotics can kill protective bacteria in your gut that could lead to a diarrheal infection called Clostridium difficle. If you experience, numerous watery diarrhea and feel ill, please call your Primary Care provider/seek medical attention. - Both of these prescriptions were sent to your preferred pharmacy electronically. There were some concerns that there could be an infection on one of your heart valves that couldn't be well visualized on your echocardiogram. But you didn't have any other signs of this illness such as fevers or bacteria growing in your blood. Please discuss if this could be considered with your Primary Care Physician to be done in the outpatient setting. This test would require an ultrasound via your esophagus similar to your EGD study here to look at the heart valve. We did get a second opinion which thought that this wasn't a heart valve vegetation, so we felt if was okay to discharge you home, since you were requesting to go home. Please refrain from all recreational drug use. This will shorten your life and prevent our ability to treat your current illness. If you need help, please consider rehab options with your primary care provider. Also, do not smoke as this will cause lung damage. If you feel ill, have worsening shortness of breath, chest pains, fevers, please call your Primary Care Provider/seek medical attention/go to emergency department. Also, please increase your daily calories consumed as you need to increase your weight to which helps with your nutrition and your body's ability to fight infections and heal. Pending Studies at Discharge: Yes Studies:: HIV Viral Load pending; but HIV standard screening testing was normal Stand-Alone Forms: My [facility], Smoking Cessation Medications and DC Order Prescriptions: New amoxicillin-pot clavulanate [Augmentin] 875-125 mg tablet 1 tab PO BID 28 Days Qty: 56 RF: 0 Saccharomyces boulardii 250 mg capsule 250 mg PO BID 28 Days Qty: 56 RF: 0 Continued methadone 10 mg/mL Concentrate 116 mg PO QAM RF: 0 diphenhydramine-acetaminophen [Tylenol PM Extra Strength] 25-500 mg Tablet 2 tab PO HS PRN (Reason: Sleep) RF: 0 Discharge Orders: Discharge Order (Routine); Ordered 01/26/20 Ordered By: Dwayne Mccormack/Other Patient Handouts: Dysphagia, Quit Smoking Plan, Quit Smoking Get Support, Dysphagia Aspiration Admission Data Admit Date/Time: 01/20/20 11:03 Attending Provider: Cornelio Alonso Admit Provider: [place] Primary Care Provider: Niki Prieto Other Providers: [place] ; Dwayne Tejeda ; Richy Conner V. ; Ming Mitchell ; Zoë Capone ; Valente Araujo Other Interventions: Discharge Summary Assessment (RN) Last Done: 01/26/20 14:19 DC Date/Time DO NOT enter until pt leaves facility: 01/26/20 14:31 Supervising Physician Co-Signing Physician Notes I personally examined the patient and verified all crump points of history and exam, discussed case, and agree with decision making with Dr Fields. Feeling better and would like to go home. Never weak/lightheaded/dizzy. Eating better. Speech thoughts noted. CT personally reviewed. Vitals noted, in general he is awake and alert pleasant no distress. HEENT normocephalic atraumatic mucous membranes moist. Breathing unlabored no accessory muscle use good effort. Skin shows no rashes no pallor or icterus. Lung lesionhopefully infectious. Possibly community-acquired pneumonia that smoldered into a lung abscess, versus potentially from aspiration events. Certainly concern on malignancy as well. Treat with Augmentin as above, reimage in about 3 weeks. If it is getting smaller, continue to treat and follow, if it is not, at that point something along the lines of a CT-guided biopsy should be undertaken. Patient and mother expressed good understanding of this. Also discussed watching for signs and symptoms of aspiration, given that it is possible that a chronic aspiration could lead to this, although it would be more expected on the opposite side. If this looks to be the case, potentially outpatient speech eval and treat could be undertaken as well. Low end blood pressures seem to be in his baseline range. He has no symptoms of hypotension. Stable for home. Close follow-up. Otherwise as above. Resident Activity Tracking Resident Involvement: Resident Care Provided Care Provided: Adult Hospital Medicine
--- NOTE | 2020-01-26 18:15 | Billing Data ---
Date of Service January 26, 2020 Coding Level of Care Code D/C Day Management >30 mins
[2020-01-27 14:25] LABS: HIV 1 RNA PCR Copies/ML <20 NOT DETECTED copies/mL (NOT DETECTED); HIV-1 RNA Log Copies/mL <1.30 NOT DETECTED (NOT DETECTED)
== END 2020-01-26 14:31 | disposition home or self-care (01) | DRG 178 ==
LOC: ED 07:06 → SUATTDRO 11:03 → 2N 11:03